=== PATIENT | female | born 1955 | race Caucasian/White ===

== ENCOUNTER 2016-09-10 23:19 | Inpatient (IN) ==
[2016-09-11] MEDS ORDERED: LASIX IV ONE (01:22)
[2016-09-11] MEDS ORDERED: NORCO-10 PO ONE (01:25)
[2016-09-11 01:37] LABS: MANUAL DIFF NEEDED? NO
[2016-09-11 02:07] LABS: ALBUMIN 3.1 g/dL (3.5-5.0); CALCIUM 8.2 mg/dL (8.8-10.2); POTASSIUM 4.4 mmol/L (3.5-5.1); TOTAL BILIRUBIN 0.3 mg/dL (0.20-1.00)
[2016-09-11 02:09] LABS: BASO% 0.1 % (0.0-0.8); EOS# 0.06 X1000 (0.0-0.7); EOS% 0.8 % (0.0-10.0); HEMATOCRIT 30.1 % (37.0-47.0); HEMOGLOBIN 8.9 g/dL (12.0-16.0); IMM GRAN# 0.02 X1000 (0.0-0.04); IMM GRAN% 0.3 % (0.0-0.5); LYMPH# 0.57 X1000 (1.2-3.4); LYMPH% 8.1 % (20.5-51.1); MCH 26.6 PG (27-31); MCHC 29.6 g/dL (33-37); MCV 90.1 FL (81-99); MONO# 0.71 X1000 (0.11-0.59); MPV 10.4 FL (7.4-10.4); NEUT% 80.7 % (42.2-75.2); PLT 182 X1000 (130-400); RBC 3.34 XMIL (4.2-5.4)
[2016-09-11 03:17] LABS: BILIRUBIN URINE NEGATIVE (NEGATIVE); BLOOD URINE 3+ (NEGATIVE); CLARITY SL. CLOUDY (CLEAR); COLOR YELLOW; GLUCOSE URINE NEGATIVE (NEGATIVE); LEUKOCYTES URINE 2+ (NEGATIVE); NITRITE URINE POSITIVE (NEGATIVE); PH URINE 6.5; PROTEIN URINE 1+(30 mg/dL) mg/dL (NEGATIVE); UROBILINOGEN URINE NORMAL
[2016-09-11 03:19] LABS: URINE WBC TNTC /HPF (<10)
[2016-09-11 03:20] LABS: URINE CULTURE PL NEEDED? YES; URINE EPITHELIAL CELLS <10 /HPF (<10); URINE SOURCE CLEAN CATCH
--- NOTE | 2016-09-11 03:31 | PROVIDER DOCUMENTATION ---
This chart was entered by Renetta Mcdonnell Scribe, acting as scribe for Alfonso Phillip MD. HPI-General Adult - General Chief Complaint: Generalized Pain Stated Complaint: HURTING ALL OVER Time Seen by Provider: 09/11/16 01:09 Source: patient Allergies/Adverse Reactions: Patient Allergies Allergy/AdvReac Type Severity Reaction Status Date / Time diazepam [From Valium] Allergy Unknown RASH Verified 09/11/16 00:02 levofloxacin [From Levaquin] Allergy RASH Verified 09/11/16 00:02 Home Medications: Home Medication List Medication Instructions Recorded Confirmed Last Taken Type Albuterol Sulfate [Ventolin Hfa] 2 puff INH Q4-6H PRN PRN 05/27/14 09/11/1612/17 06:00 History 2 Aspirin EC 81 mg PO DAILY 05/27/14 09/11/16 04/09/15 History 81 Citalopram [Celexa] 40 mg PO DAILY 05/27/14 09/11/16 04/10/15 07:00 History 40 Famotidine 20 mg PO DAILY 05/27/14 09/11/16 04/10/15 07:00 History 20 Fluticasone 50 Mcg Nasal [place] 2 spray CARMEN DAILY 05/27/14 09/11/16 Unknown History [Flonase] Fluticasone/Salmeterol [Advair 1 puff INH BID 05/27/14 09/11/16 04/11/15 06:00 History 500-50 Diskus] 1 Levothyroxine [Synthroid] 100 microgm PO DAILY 05/27/14 09/11/16 04/10/15 07:00 History 0.75 Metoprolol Tartrate 25 mg PO DAILY 05/27/14 09/11/16 04/10/15 07:00 History 25 Montelukast Sodium [Singulair] 10 mg PO DAILY 05/27/14 09/11/16 04/10/15 07:00 History 10 Tiotropium [place] Inhaler 18 mcg INH DAILY 05/27/14 09/11/16 04/10/15 07:00 History [Spiriva] 18 Hydrocodone/Acetaminophen [[place] 1 each PO Q8H PRN PRN 05/28/14 09/11/16 07:00 History 10-325 Tablet] 1 Gabapentin 300 mg PO BID 12/08/15 05/10/17 12/07/15 07:00 History 300 Lisinopril 5 mg PO DAILY 04/11/15 09/11/16 04/10/15 07:00 History 2.5 Methocarbamol 750 mg PO Q8H PRN PRN 04/11/15 09/11/16 04/08/15 History 750 Spironolactone 25 mg PO DAILY 04/11/15 09/11/16 04/10/15 07:00 History 25 Albuterol [Albuterol Neb] 2.5 mg IN TID 03/26/16 09/11/16 Unknown History Amiodarone [Cordarone] 400 mg PO DAILY #60 tablet 04/06/16 09/11/16 Unknown Rx Rivaroxaban [Xarelto] 20 mg PO DAILY 07/29/16 09/11/16 Unknown History Alendronate Sodium [Fosamax] 70 mg PO DAILY 07/31/16 09/11/16 07/24/16 History Furosemide [Lasix] 20 mg PO DAILY #20 tablet 07/31/16 09/11/16 Unknown Rx Lactulose 30 ml PO DAILY #30 udc 08/01/16 09/11/16 Unknown Rx Polyethylene Glycol 3350 [Miralax] 17 gm PO DAILY #30 powd.pack 08/01/16 Unknown Rx - History of Present Illness -Gen Adult Nature of Presenting Problems: 61 year old F presents to the ED with a cc of chest pain, ABD pain, and lower back pain with an onset of 2 days ago. PT states tonight that she began developing sores in her mouth and was running a fever of 101. Pt states that she saw her PCP last week for her annual check up and was told to follow up with her [place] aide. Location of Pain/Injury: reports: chest, abdomen, back Pain Radiation: reports: no radiation Quality of Pain: reports: aching Severity: reports: mild Onset/Duration: reports: 2 days ago Timing: reports: still present Associated Symptoms: reports: back/neck pain, chest pain Similar Symptoms Previously?: No Recently seen or treated by another doctor?: Yes Review of Systems - Adult - REVIEW OF SYSTEMS - ADULT Constitutional: reports: fever. denies: chills Eyes: reports: no symptoms reported Ears, Nose, Mouth & Throat: reports: no symptoms reported Cardiovascular: reports: chest pain. denies: palpitations Respiratory: reports: cough. denies: shortness of breath Gastrointestinal: reports: abdominal pain. denies: nausea, vomiting Genitourinary: denies: dysuria, hematuria Musculoskeletal: reports: back pain. denies: neck pain Integumentary: denies: skin sores/ulcer, skin thickening Neurological: reports: no symptoms reported Psychiatric: reports: no symptoms reported Endocrine: reports: no symptoms reported Hematologic/Lymphatic: reports: no symptoms reported Allergic/Immunologic: reports: no symptoms reported All Other Systems: Reviewed and Negative Past History - Adult - PAST MEDICAL HISTORY-ADULT Review of Records: reports: Nursing Assessment Review, Medications Reviewed Major Childhood Illnesses: reports: denies history Cardiovascular: reports: blood clots, CAD, CHF, hyperlipidemia, [place] Respiratory: reports: asthma, COPD Gastrointestinal: reports: GERD Musculoskeletal: reports: chronic pain Endocrine/Immune: reports: Diabetes, thyroid disorder, other (hx of DVT) - PRIOR SURGERIES/PROCEDURES Surgical/Procedure History: reports: CABG, cardiac stent, orthopedic (extremity ) (left arm/wrist) - PRIOR HOSPITALIZATIONS Prior Hospitalizations: reports: for other non-related - IMMUNIZATION STATUS Childhood Immunizations: See Nurse Assessment Flu Vaccine: See Nurse Assessment - FAMILY HISTORY Family History: reviewed, not pertinent - SOCIAL HISTORY Smoking: non-smoker Substance Use: none/never Alcohol Use Frequency: never Physical Exam-General - PHYSICAL EXAM-ADULT Initial Vital Signs Reviewed: Yes - CONSTITUTIONAL General Appearance: appears well, alert, no apparent distress, obese - RESPIRATORY Respiratory: decreased breath sounds, crackles (diffuse), rales (bilateral bases ) - CARDIOVASCULAR Cardiovascular: bradycardia, other (distant and weak heart sounds) - GASTROINTESTINAL (ABDOMEN) Abdominal Exam: tenderness (RUQ, LUQ) - MUSCULOSKELETAL Extremity: normal inspection, pedal edema (2+ bilaterally) - SKIN Integumentary: normal color, normal turgor, warm/dry - PSYCHIATRIC Psych/Mental Status: normal mood/affect, normal thought content, normal thought process, oriented x 3 Progress - PLAN OF CARE/RESULTS Progress/Plan/Lab Results: Vital Signs - 8 hr 09/10/16 23:58 Temperature 99.0 F Pulse Rate 69 Respiratory Rate 20 Blood Pressure 103/59 O2 Sat by Pulse Oximetry 93 L Laboratory Results - last 24 hr 09/11/16 00:05 Influenza A (Rapid) NEGATIVE Influenza B (Rapid) NEGATIVE Orders Category Date Time Status Flu [INFLUENZA SCREEN PL] Stat Lab 09/11/16 00:05 Completed Result Diagrams: 09/11/16 01:30 09/11/16 01:30 - EKG 1 Time of EKG reading by physician:: 01:40 EKG Read and Signed by:: Alfonso Phillip EKG Interpretation (*Must complete 3 of following elements*): Normal Rate: 60 Rhythm: NSR [place]: right - XRAY 1 XRAY Study: Chest Impression: Abnormal XRAY Interpretation: cardiomegally, pulmonary vascular congestion: Dr. Phillip( ER MD) Departure - Departure Time of Disposition Decision: 03:31 DIAGNOSIS: Pyelonephritis, acute CHF (congestive heart failure), NYHA class II Qualifiers: Congestive heart failure type: combined Congestive heart failure chronicity: acute on chronic Qualified Code(s): I50.43 - Acute on chronic combined systolic (congestive) and diastolic (congestive) heart failure Disposition: ADMITTED INPATIENT 09 Certified Medical Emergency: Emergent Condition: Fair Referrals and Follow-Ups: Lex Alicea MD [Primary Care Provider] - - Critical Care Note This patient required my direct & personal management of CC.: No This chart was documented by the indicated scribe, (Renetta Mcdonnell Scribe) and accurately reflects the services I performed and decisions made by me, Alfonso Phillip MD, as attested by the provider's signature.
[2016-09-11] MEDS ORDERED: ZOFRAN IV PRN (03:36)
[2016-09-11] MEDS ORDERED: TYLENOL PO PRN (03:36)
[2016-09-11] MEDS ORDERED: ROCEPHIN 1 GM/NS 1 GM/50 ML IVPB IV ONE (03:40)
[2016-09-11] MEDS: ROCEPHIN 1 GM/NS 1 GM/50 ML IVPB IV SCH (04:07)
--- NOTE | 2016-09-11 06:47 | Diag Imaging Result Document ---
PROCEDURE NAME: CHEST-2 VIEWS - 09/11/2016 FRONTAL AND LATERAL CHEST, TWO VIEWS: COMPARISON: Compared to 07/29/2016. FINDINGS: There are sternal wires and surgical clips. The heart is enlarged. The vessels are not distended. Increase AP diameter to the chest. No pleural effusions. No consolidation. IMPRESSION: 1. Cardiomegaly. 2. I believe the patient has emphysema.
[2016-09-11] MEDS: LASIX IV SCH ×2 (09:33→20:21)
[2016-09-11] MEDS: NORCO-10 PO PRN ×2 (11:01→20:28)
--- NOTE | 2016-09-11 11:43 | EKG Report ---
Test Performed on : 09/11/2016 10:57:57 AM Test Reason : Chst pain Blood Pressure : / mmHG Vent. Rate : 056 BPM Atrial Rate : 056 BPM P-R Int : 178 ms QRS Dur : 098 ms QT Int : 492 ms P-R-T Axes : 074 104 076 degrees QTc Int : 474 ms Sinus bradycardia. Possible Right ventricular hypertrophy T wave abnormality, consider anterior ischemia Prolonged QT Abnormal ECG When compared with ECG of 11-SEP-2016 01:40, No significant change was found Confirmed by Varun Rubio MD ([id number]) on 10/02/2016 10:14:42 PM
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
[2016-09-11] MEDS: ALBUTEROL NEB INH SCH ×3 (15:56→20:33)
[2016-09-11] MEDS: ADVAIR 500/50 DISKUS INH SCH (15:57)
[2016-09-11] MEDS: SPIRIVA INH SCH (15:57)
[2016-09-11] MEDS: FLONASE NAS SCH (16:29)
[2016-09-11] MEDS: LOPRESSOR PO SCH (16:30)
[2016-09-11] MEDS: LACTULOSE PO SCH (16:30)
[2016-09-11] MEDS: MIRALAX PO SCH (16:30)
[2016-09-11] MEDS: PEPCID PO SCH (16:31)
[2016-09-11] MEDS: SINGULAIR PO SCH (16:31)
[2016-09-11] MEDS: NEURONTIN PO SCH ×2 (16:31→20:21)
[2016-09-11] MEDS: SYNTHROID PO SCH (16:32)
[2016-09-11] MEDS: XARELTO PO SCH (17:22)
[2016-09-12] MEDS: ROCEPHIN 1 GM/NS 1 GM/50 ML IVPB IV SCH (03:33)
[2016-09-12] MEDS: SYNTHROID PO SCH ×2 (05:57→06:13)
[2016-09-12 06:53] LABS: BASO% 0.3 % (0.0-0.8); EOS% 1.4 % (0.0-10.0); HEMATOCRIT 29.4 % (37.0-47.0); HEMOGLOBIN 8.3 g/dL (12.0-16.0); IMM GRAN# 0.03 X1000 (0.0-0.04); IMM GRAN% 0.4 % (0.0-0.5); LYMPH# 0.57 X1000 (1.2-3.4); MCH 25.9 PG (27-31); MCHC 28.2 g/dL (33-37); MCV 91.6 FL (81-99); MONO# 0.78 X1000 (0.11-0.59); MONO% 10.9 % (1.7-9.3); MPV 11.1 FL (7.4-10.4); PLT 181 X1000 (130-400); RBC 3.21 XMIL (4.2-5.4)
[2016-09-12 07:12] LABS: CALCIUM 8.5 mg/dL (8.8-10.2); POTASSIUM 4.5 mmol/L (3.5-5.1)
[2016-09-12 07:33] LABS: MANUAL DIFF NEEDED? NO
[2016-09-12] MEDS: FLONASE NAS SCH (08:52)
[2016-09-12] MEDS: NEURONTIN PO SCH ×2 (08:52→20:39)
[2016-09-12] MEDS: LOPRESSOR PO SCH (08:52)
[2016-09-12] MEDS: CORDARONE PO SCH (08:52)
[2016-09-12] MEDS: CELEXA PO SCH (08:52)
[2016-09-12] MEDS: MIRALAX PO SCH (08:52)
[2016-09-12] MEDS: ALDACTONE PO SCH (08:53)
[2016-09-12] MEDS: LACTULOSE PO SCH (08:53)
[2016-09-12] MEDS: PEPCID PO SCH (08:53)
[2016-09-12] MEDS: SINGULAIR PO SCH (08:53)
[2016-09-12] MEDS: LASIX IV SCH (08:53)
[2016-09-12] MEDS: ASPIRIN EC PO SCH (08:53)
[2016-09-12] MEDS: SPIRIVA INH SCH (09:00)
[2016-09-12] MEDS: ALBUTEROL NEB INH SCH ×3 (09:00→20:53)
[2016-09-12] MEDS: ADVAIR 500/50 DISKUS INH SCH ×3 (09:00→20:53)
--- NOTE | 2016-09-12 09:23 | ECHO REPORT ---
ORDER DATE: 09/11/2016 INDICATION: Chest pain and COPD. M-MODE MEASUREMENTS: Right ventricle: 4.6 cm. Left ventricle end diastole: 4.4 cm. Left ventricle end systole: 3.3 cm. Posterior wall: 1.2 cm. Interventricular septum: 1.2 cm. Left atrium: 4.0 cm. Aortic root: 3.5 cm. SUMMARY OF 2-DIMENSIONAL IMAGIN. The left ventricle shows atypical or paradoxical contractility of the interventricular septum. The chamber is not dilated. The global ejection fraction is normal at 59%. 2. The right ventricle is markedly enlarged and it shows mild global hypokinesis. 3. The tricuspid valve shows [id number] severe degree of regurgitation. 4. The inferior vena cava is at the upper limits of normal. 5. The pulmonary systolic pressure is estimated to be at 54 mmHg. 6. The pulmonic valve shows a moderate degree regurgitation. 7. The pulmonary diastolic pressure is estimated at 18 mmHg. 8. The mitral valve looks normal. Color flow mapping indicates a mild degree of regurgitation. 9. Pulse wave Doppler of mitral inflow is normal. 10.Tissue Doppler of septal and lateral mitral annulus averages 8 cm. 11.Pulmonary venous flow is normal. 12.There is no diastolic dysfunction. 13.The aortic valve has three cusps and they open normally. Color flow mapping is unremarkable. There is no stenosis and no regurgitation. 14.There is no pericardial effusion and no sign of thrombus. SUMMARY: In summary, this study shows: 1. Normal left ventricular size with normal function and ejection fraction of 59% with paradoxical contractility of the interventricular septum. This probably relates to the large right ventricle. 2. Significantly enlarged right ventricle with mild global hypokinesis. 3. Pulmonary systolic pressure is estimated at 54 mmHg and diastolic pressure is estimated at 18 mmHg. 4. Mild degree of mitral regurgitation. 5. No pericardial effusion and no sign of thrombus. 6. No diastolic dysfunction. cc: MD Humphrey Vu MD
--- NOTE | 2016-09-12 10:54 | Diag Imaging Result Document ---
PROCEDURE NAME: CHEST-PORTABLE - 09/12/2016 PORTABLE CHEST X-RAY: COMPARISON: 09/11/2016. FINDINGS: Stable CABG changes. Stable cardiomegaly and pulmonary vascular congestion. No obvious edema. No significant infiltrates. IMPRESSION: Cardiomegaly and pulmonary vascular congestion.
--- NOTE | 2016-09-12 13:34 | PROGRESS NOTE ---
DATE: 09/12/2016 SUBJECTIVE: This patient states that she is feeling much better. Yesterday she was complaining of some kind of chest discomfort. I ordered an EKG that did not show any changes compared with previous ones and troponin has been negative so far. I ordered a chest x-ray today and that showed some vascular congestion. In light of increased creatinine I will decrease the dose of furosemide from 40 IV twice a day to 40 IV daily and hopefully tomorrow it can be changed to p.o. This patient is on furosemide at home, 20 mg p.o. daily. OBJECTIVE: Vital Signs: Temperature 97.7 degrees, pulse 86, respiratory rate 20, blood pressure 112/68, oxygen saturation 94% on 2 L of nasal cannula. HEENT: Head normocephalic. No trauma. PERRLA. Neck: Supple. No JVD. No masses. Central trachea. Chest: Bilateral rales at the bases and decreased breath sounds at the bases as well. Cardiovascular: RRR. No murmurs. Abdomen: Soft, nontender, nondistended. No hepatosplenomegaly. Extremities: There is 2+ lower extremity edema. No clubbing. No cyanosis. Neurological: The patient is alert and oriented x3. No focal neurological deficits. LABORATORY: WBC 7.1, hemoglobin 8.3, hematocrit 29.4, platelet 181,000. Sodium 135, potassium 4.5, chloride 94, bicarbonate 29, BUN 35, creatinine 1.7, glucose 115, calcium 8.5. ASSESSMENT AND PLAN: 1. Urinary tract infection. We will continue this patient on antibiotics. This patient is on ceftriaxone. Urine culture showed gram-negative rods, pending sensitivity. 2. Acute kidney injury. I will decrease the dose of furosemide from 40 IV twice a day to 40 daily. She still has some pulmonary congestion and lower extremity edema. She has been on Lasix and spironolactone before. We will monitor. 3. Questionable congestive heart failure. We had an echocardiogram that showed no diastolic dysfunction. I do believe that she has mild pulmonary hypertension and ejection fraction of 59%, but this patient has been having paradoxical contractility of the interventricular septum and this is probably related to the large right ventricle. 4. Type 2 diabetes, controlled. Continue with the same management. 5. Chronic obstructive pulmonary disease. Not in exacerbation at this moment. Continue with the same treatment. cc: Humphrey Gooden MD
[2016-09-12] MEDS: NORCO-10 PO PRN ×2 (13:59→22:31)
[2016-09-12] MEDS: XARELTO PO SCH (16:52)
[2016-09-13] MEDS: ROCEPHIN 1 GM/NS 1 GM/50 ML IVPB IV SCH (04:45)
[2016-09-13] MEDS: NORCO-10 PO PRN ×2 (06:30→21:48)
[2016-09-13] MEDS: SYNTHROID PO SCH (06:30)
[2016-09-13] MEDS: ROBAXIN PO PRN (06:35)
[2016-09-13 07:09] LABS: BASO% 0.4 % (0.0-0.8); EOS# 0.14 X1000 (0.0-0.7); EOS% 1.9 % (0.0-10.0); HEMATOCRIT 30.3 % (37.0-47.0); HEMOGLOBIN 8.6 g/dL (12.0-16.0); IMM GRAN# 0.06 X1000 (0.0-0.04); IMM GRAN% 0.8 % (0.0-0.5); LYMPH# 0.65 X1000 (1.2-3.4); LYMPH% 8.7 % (20.5-51.1); MANUAL DIFF NEEDED? YES; MCH 25.9 PG (27-31); MCHC 28.4 g/dL (33-37); MCV 91.3 FL (81-99); MONO% 6.7 % (1.7-9.3); NEUT% 81.5 % (42.2-75.2); PLT 205 X1000 (130-400); RBC 3.32 XMIL (4.2-5.4)
[2016-09-13 07:39] LABS: CALCIUM 8.4 mg/dL (8.8-10.2); POTASSIUM 4.3 mmol/L (3.5-5.1)
[2016-09-13] MEDS: SPIRIVA INH SCH (07:40)
[2016-09-13] MEDS: ADVAIR 500/50 DISKUS INH SCH ×3 (08:00→20:21)
[2016-09-13 08:53] LABS: EOS 2 % (1-10); HYPOCHROM 1+; LYMPHS 12 % (21-51); MONO 4 % (1-9)
[2016-09-13] MEDS: ALBUTEROL NEB INH SCH ×3 (09:00→20:20)
[2016-09-13] MEDS ORDERED: LASIX IV SCH (09:00)
[2016-09-13] MEDS: NEURONTIN PO SCH ×2 (10:01→20:43)
[2016-09-13] MEDS: CELEXA PO SCH (10:02)
[2016-09-13] MEDS: ASPIRIN EC PO SCH (10:02)
[2016-09-13] MEDS: SINGULAIR PO SCH (10:02)
[2016-09-13] MEDS: ALDACTONE PO SCH (10:02)
[2016-09-13] MEDS: PEPCID PO SCH (10:02)
[2016-09-13] MEDS: LOPRESSOR PO SCH (10:03)
[2016-09-13] MEDS: LACTULOSE PO SCH (10:03)
[2016-09-13] MEDS: MIRALAX PO SCH (10:03)
[2016-09-13] MEDS: CORDARONE PO SCH (10:28)
[2016-09-13] MEDS: FLONASE NAS SCH (10:49)
--- NOTE | 2016-09-13 13:36 | PROGRESS NOTE ---
DATE: 09/13/2016 SUBJECTIVE: Today Ms. Hollis refers to be doing a lot better. She was sitting up on the side of the bed. She did refer that she has some perioral numbness. OBJECTIVE: Vital Signs: Blood pressure is 115/49, pulse of 64, respirations 20, temperature 98.5 degrees. General: Ms. Hollis is a 61-year-old female. She is in bed, sitting up, in no distress. HEENT: Mucosa is pink and moist. Anicteric. Acyanotic. Neck: Supple. Chest: Air entry is bilaterally reduced. Cardiovascular: Regular rate and rhythm. There is a 2/6 PS murmur and also a TR murmur. No gallops. Abdomen: Soft, distended, but nontender. Extremities: About 2+ pedal edema. Central Nervous System: The patient is alert and oriented x4. No focal neurological deficit. LABORATORY DATA: WBC is 7.49, hemoglobin is 8.6, platelet count of 200,000. Chemistries: Sodium is 134, potassium 4.3, chloride is 94, bicarbonate is 30. ASSESSMENT AND PLAN: 1. Escherichia coli urinary tract infection, sensitive to ceftriaxone. We will continue on that. 2. Acute kidney injury. The patient does have recurrent acute kidney injuries. For now, we will make sure to avoid any nephrotoxic drugs. We will discontinue the furosemide since this seems to be getting it worse. 3. Mild pulmonary hypertension with large right ventricle and with hypokinesis. I think this is all indicative of right ventricular failure, which I suspect is due to underlying lung disease. I suspect the patient has sleep apnea versus obesity hypoventilation syndrome, which she will need to address this with pulmonary medicine on an outpatient basis. 4. Diabetes type 2, controlled. 5. Chronic obstructive pulmonary disease, not in exacerbation. 6. Metabolic alkalosis. I think this is probably reactive to chronic respiratory acidosis from obesity hypoventilation syndrome. We will do an arterial blood gas to check on her acid-base. cc: Jos Martini MD
[2016-09-13] MEDS: XARELTO PO SCH (17:17)
[2016-09-14] MEDS: ROCEPHIN 1 GM/NS 1 GM/50 ML IVPB IV SCH (03:02)
[2016-09-14 04:54] LABS: BE 9.8 mmoll (-3.0-3.0); BLOOD TYPE ARTERIAL; DRAW SITE R RADIAL; METHB 0.5 % (0.0-1.5); O2(CT) 12.4 mL/dL (15.0-23.0); PO2(98.6) 116 mmHg (60-100); SAMPLE BLOOD; SAO2 100.4 % (95.0-100.0); THB 8.9 g/dL (11.5-17.4); pH(98.6) 7.33 (7.35-7.45)
[2016-09-14] MEDS: SPIRIVA INH SCH (07:14)
[2016-09-14 08:30] LABS: AGAP 10; BUN 41 mg/dL (8-22); CHLORIDE 94 mmol/L (98-107); COSMO 277; MAGNESIUM 2.1 mg/dL (1.5-2.7); POTASSIUM 4.4 mmol/L (3.5-5.1); SODIUM 133 mmol/L (136-145); TCO2 29 mmol/L (25-35)
[2016-09-14] MEDS: FLONASE NAS SCH (08:41)
[2016-09-14] MEDS: NEURONTIN PO SCH ×2 (08:42→22:00)
[2016-09-14] MEDS: CORDARONE PO SCH (08:42)
[2016-09-14] MEDS: PEPCID PO SCH (08:42)
[2016-09-14] MEDS: ASPIRIN EC PO SCH (08:42)
[2016-09-14] MEDS: MIRALAX PO SCH (08:42)
[2016-09-14] MEDS: SINGULAIR PO SCH (08:42)
[2016-09-14] MEDS: LOPRESSOR PO SCH (08:42)
[2016-09-14] MEDS: CELEXA PO SCH (08:42)
[2016-09-14 08:46] LABS: BASO% 0.4 % (0.0-0.8); EOS# 0.08 X1000 (0.0-0.7); EOS% 1.1 % (0.0-10.0); HEMATOCRIT 30.2 % (37.0-47.0); HEMOGLOBIN 8.6 g/dL (12.0-16.0); IMM GRAN# 0.07 X1000 (0.0-0.04); IMM GRAN% 0.9 % (0.0-0.5); LYMPH# 0.64 X1000 (1.2-3.4); LYMPH% 8.4 % (20.5-51.1); MANUAL DIFF NEEDED? YES; MCH 25.9 PG (27-31); MCHC 28.5 g/dL (33-37); MONO# 0.41 X1000 (0.11-0.59); MONO% 5.4 % (1.7-9.3); NEUT% 83.8 % (42.2-75.2); PLT 253 X1000 (130-400); RBC 3.32 XMIL (4.2-5.4)
[2016-09-14] MEDS: ALDACTONE PO SCH (08:49)
[2016-09-14] MEDS: LACTULOSE PO SCH (08:50)
[2016-09-14] MEDS: ADVAIR 500/50 DISKUS INH SCH ×2 (09:13→20:29)
[2016-09-14] MEDS: ALBUTEROL NEB INH SCH ×2 (09:14→20:29)
[2016-09-14 09:38] LABS: ALLEN TEST YES; MODALITY CANNULA
[2016-09-14] MEDS: NORCO-10 PO PRN ×2 (10:08→18:58)
[2016-09-14] MEDS: ROBAXIN PO PRN ×2 (10:09→18:58)
[2016-09-14 10:21] LABS: LYMPHS 18 % (21-51); MONO 6 % (1-9)
[2016-09-14 10:55] LABS: PCO2(98.6) 71 mmHg (35-45)
--- NOTE | 2016-09-14 12:38 | PROGRESS NOTE ---
DATE: 09/14/2016 SUBJECTIVE: Today Ms. Hollis refers to be doing relatively fine. She denies any acute complaints. OBJECTIVE: Vital Signs: Blood pressure is 137/57, pulse of 65, temperature is 98.5 degrees. General: Ms. Hollis is a 61-year-old female. She is sitting up in the bed, not seemingly distressed. HEENT: Mucosa is pink and moist. Anicteric. Acyanotic. Neck: Supple. Chest: Good air entry bilaterally. Cardiovascular: Regular rate and rhythm. There is a 2/6 TR murmur. There is also a scar. Abdomen: Soft, distended, but nontender. Extremities: About 2+ pedal edema, which is hard. LABORATORY DATA: WBC is 7.6, hemoglobin is 8.6, platelet count of 253,000. There are no bands on peripheral smear. Chemistries reviewed, sodium is 133, potassium is 4.4, chloride is 98, bicarbonate is 29, BUN is 41, creatinine is 1.7. ASSESSMENT: 1. Escherichia coli urinary tract infection. We will continue with the current ceftriaxone. Today is day 3 on antibiotics, and we plan to treat her for a total of 5 days. 2. Acute kidney injury, stable. We will continue to avoid any nephrotoxins. The patient does have recurrent acute kidney injuries, so I think she does have a baseline chronic kidney disease. 3. Mild pulmonary hypertension with large right ventricle and hypokinesis. 4. Metabolic alkalosis. 5. Acute on chronic respiratory acidosis, suspicion for possible hypoventilation syndrome. 6. Diabetes type 2. 7. Chronic lower extremity edema, likely from venous insufficiency. In general, I think Ms. Hollis is stable. An ABG this morning did show a CO2 of 71, which is high. We will put her on the BiPAP for about 4 hours, repeat her ABGs to make sure it is back to normal before we discharge her later today or first thing in the morning. cc: MD LIDIA Chu
[2016-09-14] MEDS: SYNTHROID PO SCH (12:54)
[2016-09-14] MEDS: XARELTO PO SCH (16:52)
[2016-09-14 17:12] LABS: BE 3.3 mmoll (-3.0-3.0); BLOOD TYPE ARTERIAL; DRAW SITE L RADIAL; METHB 0.8 % (0.0-1.5); O2(CT) 16.6 mL/dL (15.0-23.0); PO2(98.6) 59 mmHg (60-100); SAMPLE BLOOD; SAO2 93.1 % (95.0-100.0); pH(98.6) 7.31 (7.35-7.45)
[2016-09-14 17:18] LABS: ALLEN TEST YES; MODALITY BI PAP
[2016-09-15] MEDS: ROCEPHIN 1 GM/NS 1 GM/50 ML IVPB IV SCH (03:51)
[2016-09-15 05:48] LABS: BE 7.3 mmoll (-3.0-3.0); BLOOD TYPE ARTERIAL; DRAW SITE L BRACHIAL; METHB 1.1 % (0.0-1.5); O2(CT) 11.6 mL/dL (15.0-23.0); PO2(98.6) 91 mmHg (60-100); SAMPLE BLOOD; SAO2 98.8 % (95.0-100.0); THB 8.5 g/dL (11.5-17.4); pH(98.6) 7.36 (7.35-7.45)
[2016-09-15 05:50] LABS: PCO2(98.6) 60 mmHg (35-45)
[2016-09-15 05:51] LABS: ALLEN TEST NO; MODALITY CANNULA
[2016-09-15] MEDS ORDERED: FOSAMAX PO SCH (06:00)
[2016-09-15] MEDS: ROBAXIN PO PRN (06:15)
[2016-09-15] MEDS: NORCO-10 PO PRN (06:16)
[2016-09-15] MEDS: SYNTHROID PO SCH (06:16)
[2016-09-15 07:27] LABS: CALCIUM 8.4 mg/dL (8.8-10.2); POTASSIUM 5.3 mmol/L (3.5-5.1)
[2016-09-15 08:11] VITALS: BP 108/47
[2016-09-15] MEDS ORDERED: KAYEXALATE PO ONE (08:26)
[2016-09-15] MEDS: ALBUTEROL NEB INH SCH (08:50)
[2016-09-15] MEDS: ADVAIR 500/50 DISKUS INH SCH (08:52)
[2016-09-15] MEDS: SPIRIVA INH SCH (08:52)
[2016-09-15] MEDS: PEPCID PO SCH (09:31)
[2016-09-15] MEDS: MIRALAX PO SCH (09:31)
[2016-09-15] MEDS: LOPRESSOR PO SCH (09:31)
[2016-09-15] MEDS: FLONASE NAS SCH (09:31)
[2016-09-15] MEDS: LACTULOSE PO SCH (09:31)
[2016-09-15] MEDS: ASPIRIN EC PO SCH (09:31)
[2016-09-15] MEDS: SINGULAIR PO SCH (09:31)
[2016-09-15] MEDS: NEURONTIN PO SCH (09:31)
[2016-09-15] MEDS: ALDACTONE PO SCH (09:32)
[2016-09-15] MEDS: CORDARONE PO SCH (09:32)
[2016-09-15] MEDS: CELEXA PO SCH (09:32)
[2016-09-15] MEDS ORDERED: DUONEB (A & A) ONE (10:48)
[2016-09-15] MEDS ORDERED: OMNICEF PO SCH (21:00)
--- NOTE | 2016-09-16 04:46 | DISCHARGE SUMMARY ---
ADMISSION DATE: 09/11/2016 DISCHARGE DATE: 09/15/2016 DISPOSITION: Home. FOLLOWUP: 1. Dr. Alicea. 2. Dr. rGimes. CONSULTATIONS DURING THIS ADMISSION: None. IMAGING STUDIES OF SIGNIFICANCE: And echocardiogram was done, which showed an ejection fraction of about 59. There was some paradoxical contractility of the interventricular septum. A chest x- ray was done, shows cardiomegaly and pulmonary vascular congestion. ADMISSION DIAGNOSES: 1. Pyelonephritis. 2. Acute kidney injury. 3. Congestive failure. DISCHARGE DIAGNOSES: 1. E. coli urinary tract infection. 2. Acute kidney injury, improved. 3. Mild pulmonary hypertension, with large right ventricle and hypokinesis. 4. Fzygx-zs-jldduhc respiratory acidosis, suspicious for possible hypoventilation syndrome. 5. Diabetes mellitus. 6. Chronic lower extremity edema, likely due to venous insufficiency. DISCHARGE MEDICATIONS: 1. Albuterol inhaler. 2. Aspirin 81 mg. 3. Advair. 4. Famotidine 20 mg daily. 5. Metoprolol 25 mg daily. 6. Spiriva inhaler. 7. Spironolactone 25 mg daily. 8. Lisinopril 5 mg daily. 9. Methocarbamol 750 q.8 p.r.n. 10. Amiodarone 400 mg daily. 11. Rivaroxaban 20 mg daily. 12. Lasix 20 mg daily. 13. Alendronate 70 mg daily. 14. Lactulose. 15. Cefdinir 300 b.i.d. PRESENTING COMPLAINT: Lower back pain, chest, and subjective fever. HISTORY OF PRESENTING COMPLAINT: Ms. Hollis is a 61-year-old female, who presented to the emergency department because of subjective fever of 101 for the past 2 days prior to coming. Upon presentation, patient was evaluated, was found to have costophrenic angle tenderness. Patient was subsequently admitted for medical care. HOSPITAL COURSE: The patient responded well to the IV antibiotics. The fever subsided. Urine culture finally came out to be E. coli, sensitive to the medication that she was on. This was transitioned to p.o. Her kidney functions also improved gradually with gentle hydration. At the time of discharge, the patient's potassium was about 5.3. Was given a dose of Kayexalate, and has been advised to repeat her BNP in 1 week, and review the result with her primary care doctor. The patient is going to be discharged home in a very stable condition. Her vitals currently: Blood pressure is 108/47, pulse of 69, respirations 18, temperature is 97.8 degrees. TIME SPENT: Time spent for discharge was 37 minutes. cc: Jos Martini MD
[2016-09-18 12:42] LABS: PCO2(98.6) 62 mmHg (35-45)
== END 2016-09-15 14:15 | disposition home health service (06) ==
LOC: P.ED 23:19 → SUATTDRO 09-11 04:03 → P.MEDSURG 09-11 04:03
PROVIDERS: ATTEND Internal Medicine

== ENCOUNTER 2016-11-07 07:25 | Inpatient (IN) ==
[2016-11-07] MEDS ORDERED: ASPIRIN PO STA (07:34)
[2016-11-07 07:52] LABS: MANUAL DIFF NEEDED? NO
[2016-11-07 07:58] LABS: BASO% 0.5 % (0.0-0.8); EOS# 0.13 X1000 (0.0-0.7); EOS% 2.1 % (0.0-10.0); HEMATOCRIT 35.2 % (37.0-47.0); HEMOGLOBIN 10.5 g/dL (12.0-16.0); IMM GRAN# 0.02 X1000 (0.0-0.04); IMM GRAN% 0.3 % (0.0-0.5); LYMPH# 1.45 X1000 (1.2-3.4); MCH 26.1 PG (27-31); MCHC 29.8 g/dL (33-37); MCV 87.6 FL (81-99); MONO# 0.47 X1000 (0.11-0.59); MONO% 7.4 % (1.7-9.3); MPV 10.1 FL (7.4-10.4); NEUT% 66.7 % (42.2-75.2); PLT 284 X1000 (130-400); RBC 4.02 XMIL (4.2-5.4)
--- NOTE | 2016-11-07 08:08 | Diag Imaging Result Doc PS360 ---
EXAM: CHEST-PORTABLE HISTORY: sob TECHNIQUE: Erect AP portable at 0744 COMMENT: There is cardiomegaly. There is mild interstitial pulmonary edema. There is some obscuration of the left heart border and hemidiaphragm which may be indicative of atelectasis or pneumonia. IMPRESSION: Pulmonary edema and questionable lingular and left lower lobe atelectasis. Electronically signed by Anthony Amaya 11/07/2016 8:05 AM
[2016-11-07 08:11] LABS: ALBUMIN 4.2 g/dL (3.5-5.0); MAGNESIUM 1.9 mg/dL (1.5-2.7); POTASSIUM 4.5 mmol/L (3.5-5.1); TOTAL BILIRUBIN 0.3 mg/dL (0.20-1.00); TOTAL PROTEIN 7.9 g/dL (6.3-8.3)
[2016-11-07 08:31] LABS: INR 1.8 (0.86-1.15); PROTIME 21.1 Seconds (12.1-15.5)
--- NOTE | 2016-11-07 08:42 | EKG Report ---
Test Performed on : 11/07/2016 07:50:32 AM Test Reason : CHEST PAIN Blood Pressure : / mmHG Vent. Rate : 064 BPM Atrial Rate : 064 BPM P-R Int : 190 ms QRS Dur : 096 ms QT Int : 478 ms P-R-T Axes : 054 100 042 degrees QTc Int : 493 ms Normal sinus rhythm. Inferior-posterior infarct , age undetermined Abnormal ECG When compared with ECG of 07-NOV-2016 07:49, (Unconfirmed) No significant change was found Unconfirmed Result
[2016-11-07] MEDS ORDERED: LASIX IV ONE (10:15)
--- NOTE | 2016-11-07 10:47 | PROVIDER DOCUMENTATION ---
This chart was entered by Laura Tariq Scribe, acting as scribe for Alex Figueroa MD. HPI-Respiratory General - General Chief Complaint: Shortness of Breath Stated Complaint: SOB Time Seen by Provider: 11/07/16 07:34 Source: patient Allergies/Adverse Reactions: Patient Allergies Allergy/AdvReac Type Severity Reaction Status Date / Time diazepam [From Valium] Allergy Unknown RASH Verified 09/11/16 00:02 levofloxacin [From Levaquin] Allergy RASH Verified 09/11/16 00:02 Home Medications: Home Medication List Medication Instructions Recorded Confirmed Last Taken Type Albuterol Sulfate [Ventolin Hfa] 2 puff INH Q4-6H PRN PRN 05/27/14 09/11/1612/17 06:00 History 2 Aspirin EC 81 mg PO DAILY 05/27/14 09/11/16 04/09/15 History 81 Citalopram [Celexa] 40 mg PO DAILY 05/27/14 09/11/16 04/10/15 07:00 History 40 Famotidine 20 mg PO DAILY 05/27/14 09/11/16 04/10/15 07:00 History 20 Fluticasone/Salmeterol [Advair 1 puff INH BID 05/27/14 09/11/16 04/11/15 06:00 History 500-50 Diskus] 1 Metoprolol Tartrate 25 mg PO DAILY 05/27/14 09/11/16 04/10/15 07:00 History 25 Montelukast Sodium [Singulair] 10 mg PO DAILY 05/27/14 09/11/16 04/10/15 07:00 History 10 Tiotropium [place] Inhaler 18 mcg INH DAILY 05/27/14 09/11/16 04/10/15 07:00 History [Spiriva] 18 Hydrocodone/Acetaminophen [[place] 1 each PO Q8H PRN PRN 05/28/14 09/11/16 07:00 History 10-325 Tablet] 1 Gabapentin 300 mg PO BID 04/11/15 09/11/16 04/10/15 07:00 History 300 Lisinopril 5 mg PO DAILY 04/11/15 09/11/16 04/10/15 07:00 History 2.5 Methocarbamol 750 mg PO Q8H PRN PRN 04/11/15 09/11/16 04/08/15 History 750 Spironolactone 25 mg PO DAILY 04/11/15 09/11/16 04/10/15 07:00 History 25 Albuterol [Albuterol Neb] 2.5 mg IN TID 03/26/16 09/11/16 Unknown History Amiodarone [Cordarone] 400 mg PO DAILY #60 tablet 04/06/16 09/11/16 Unknown Rx Rivaroxaban [Xarelto] 20 mg PO DAILY 07/29/16 09/11/16 Unknown History Alendronate Sodium [Fosamax] 70 mg PO DAILY 07/31/16 09/11/16 07/24/16 History Furosemide [Lasix] 20 mg PO DAILY #20 tablet 07/31/16 09/11/16 Unknown Rx Lactulose 30 ml PO DAILY #30 udc 08/01/16 09/11/16 Unknown Rx Polyethylene Glycol 3350 [Miralax] 17 gm PO DAILY #30 powd.pack 08/01/16 Unknown Rx CefDINIR [Omnicef] 300 mg PO BID #6 capsule 09/15/16 Unknown Rx Levothyroxine [Synthroid] 100 microgm PO DAILY@0700 #60 09/15/16 Unknown Rx tablet Lorazepam [Ativan] 1 mg PO TID PRN #20 tablet 10/20/16 Unknown Rx - History of Present Illness-Resp Nature of Presenting Problem: 61 yo F presents to the ER with complaint of worsening SOB x2 days. Pt has a hx of COPD and CHF. Denies any CP, nausea, or diaphoresis. Onset/Duration: reports: 2 days ago Episode Frequency: chronic episodes Current Respiratory Medication Therapy: Initiated see nurses note Associated Symptoms: reports: shortness of breath, short of breath. denies: chest pain/soreness, cough, fever/chills Review of Systems - Adult - REVIEW OF SYSTEMS - ADULT Constitutional: denies: chills, fever Eyes: reports: no symptoms reported Ears, Nose, Mouth & Throat: reports: no symptoms reported Cardiovascular: denies: chest pain, palpitations Respiratory: reports: shortness of breath, wheezing. denies: cough Gastrointestinal: denies: diarrhea, nausea, vomiting Genitourinary: reports: no symptoms reported Musculoskeletal: reports: no symptoms reported Integumentary: reports: no symptoms reported Neurological: reports: no symptoms reported Psychiatric: reports: no symptoms reported Endocrine: reports: no symptoms reported Hematologic/Lymphatic: reports: no symptoms reported Allergic/Immunologic: reports: no symptoms reported All Other Systems: Reviewed and Negative Past History - Adult - PAST MEDICAL HISTORY-ADULT Review of Records: reports: Nursing Assessment Review, Medications Reviewed Cardiovascular: reports: blood clots, CAD, CHF, hyperlipidemia, IN Respiratory: reports: asthma, COPD Gastrointestinal: reports: GERD Musculoskeletal: reports: chronic pain Endocrine/Immune: reports: Diabetes, thyroid disorder, other (hx of DVT) - PRIOR SURGERIES/PROCEDURES Surgical/Procedure History: reports: CABG, cardiac stent, orthopedic (extremity ) (left arm/wrist) - PRIOR HOSPITALIZATIONS Prior Hospitalizations: reports: for other non-related - IMMUNIZATION STATUS Childhood Immunizations: See Nurse Assessment Flu Vaccine: See Nurse Assessment Physical Exam-General - PHYSICAL EXAM-ADULT Initial Vital Signs Reviewed: Yes - CONSTITUTIONAL General Appearance: alert, obese - EYES Eyes: PERRL/EOMI, pink conjunctivae - HEAD, EARS, NOSE, MOUTH & THROAT HENMT: normocephalic/atraumatic, normal ENT inspection, TMs normal, pharynx normal - NECK Neck: supple, normal inspection - RESPIRATORY Respiratory: no accessory muscle use, rales, rhonchi, wheezing - CARDIOVASCULAR Cardiovascular: normal peripheral pulses, regular rate, rhythm. negative: no edema - MUSCULOSKELETAL Back Exam: normal inspection, no CVA tenderness, no vertebral tenderness Extremity: normal range of motion, non-tender, normal gait, normal inspection - SKIN Integumentary: normal color, warm/dry, other (pitting edema to bilat LE) - NEUROLOGIC Neurologic: grossly normal, no motor/sensory deficits - PSYCHIATRIC Psych/Mental Status: normal mood/affect, normal thought content, normal thought process, oriented x 3 Progress - PLAN OF CARE/RESULTS Progress/Plan/Lab Results: Vital Signs - 8 hr 11/07/16 07:28 Temperature 98.1 F Pulse Rate 99 H Respiratory Rate 36 H O2 Sat by Pulse Oximetry 97 Laboratory Results - last 24 hr 11/07/16 11/07/16 11/07/16 07:45 07:45 07:45 WBC RBC Hgb Hct MCV MCH MCHC RDW Std Deviation Plt Count MPV Immature Gran % (Auto) Neut % (Auto) Lymph % (Auto) [place] % (Auto) Eos % (Auto) Baso % (Auto) Immature Gran # (Auto) Neut # (Auto) Lymph # (Auto) [place] # (Auto) Eos # (Auto) Baso # (Auto) PT INR APTT (Factor Assay) Sodium 137 Potassium 4.5 Chloride 99 Carbon Dioxide 26 Anion Gap 12 BUN 27 H Creatinine 1.2 H Estimated GFR/1.73 m2 46 BUN/Creatinine Ratio 23 Glucose 91 Calculated Osmolality 279 Calcium 9.0 Magnesium 1.9 Total Bilirubin 0.30 AST 31 H ALT 24 Alkaline Phosphatase 140 H Creatine Kinase 119 Troponin T 0.033 Riy-X-Jtvwknazaau Pept 2109 H Total Protein 7.9 Albumin 4.2 Globulin 4.0 Albumin/Globulin Ratio 1.0 11/07/16 11/07/16 07:45 07:45 WBC 6.31 RBC 4.02 L Hgb 10.5 L Hct 35.2 L MCV 87.6 MCH 26.1 L MCHC 29.8 L RDW Std Deviation 18.7 H Plt Count 284 MPV 10.1 Immature Gran % (Auto) 0.3 Neut % (Auto) 66.7 Lymph % (Auto) 23.0 Blanco % (Auto) 7.4 Eos % (Auto) 2.1 Baso % (Auto) 0.5 Immature Gran # (Auto) 0.02 Neut # (Auto) 4.21 Lymph # (Auto) 1.45 [place] # (Auto) 0.47 Eos # (Auto) 0.13 Baso # (Auto) 0.03 PT 21.1 H INR 1.80 H APTT (Factor Assay) 40.0 Sodium Potassium Chloride Carbon Dioxide Anion Gap BUN Creatinine Estimated GFR/1.73 m2 BUN/Creatinine Ratio Glucose Calculated Osmolality Calcium Magnesium Total Bilirubin AST ALT Alkaline Phosphatase Creatine Kinase Troponin T [id number]-Cjowjyjvvqz Pept Total Protein Albumin Globulin Albumin/Globulin Ratio Orders Category Date Time Status Cardiac Monitoring DIRECTED Care 11/07/16 07:34 Active Oxygen Therapy- ED Nursing DIRECTED Care 11/07/16 07:34 Active Saline Loc NOW Care 11/07/16 07:34 Active CHEST-PORTABLE [RAD] Stat Exams 11/07/16 07:35 Completed CBC WITH ELECTRONIC DIFF [HEME] Stat Lab 11/07/16 07:45 Completed CK PROFILE [SP CHEM] Stat Lab 11/07/16 07:45 Completed COMPREHENSIVE METABOLIC PANEL [CHEM] Stat Lab 11/07/16 07:45 Completed MAGNESIUM [CHEM] Stat Lab 11/07/16 07:45 Completed PRO B-NATRIURETIC PEPTIDE Stat Lab 11/07/16 07:45 Completed [address]IME WITH INR PL [COAG] Stat Lab 11/07/16 07:[address] [COAG] Stat Lab 11/07/16 07:45 Completed TROPONIN T Stat Lab 11/07/16 07:45 Completed Aspirin Med 11/07/16 07:34 Discontinued 325 mg PO STAT STA Furosemide [Lasix] Med 11/07/16 10:15 Discontinued 80 mg IV NOW ONE EKG [EKG] Stat Ther 11/07/16 07:34 Draft Result Diagrams: 11/07/16 07:45 11/07/16 07:45 - EKG 1 Time of EKG reading by physician:: 07:49 EKG Read and Signed by:: Alex Figueroa EKG Interpretation (*Must complete 3 of following elements*): Abnormal Rate: 65 Rhythm: normal sinus rhythm [place]: right QRS: RBB (incomplete) OR Interval: normal ST Wave: non-specific ST changes (ST&T wave abnormality, consider anterior ischemia) - XRAY 1 XRAY Study: Chest Impression: See EMR Report (pulmonary edema and questionable lingular and LLL atelectasis, per radiologist) Departure - Departure Date of Disposition Decision: 11/07/16 Time of Disposition Decision: 10:45 DIAGNOSIS: CHF exacerbation Disposition: ADMITTED INPATIENT 09 Certified Medical Emergency: Emergent Condition: Stable Referrals and Follow-Ups: Lex Alicea MD [Primary Care Provider] - - Critical Care Note This patient required my direct & personal management of CC.: No Attestation - Physician/ JESSE Attestation The physician spent face to face time with patient:: Yes Advanced Practice Provider documentation review:: The physician spent face to face time with this patient and agrees with all MLP documentation, treatment, and medical decision making by the MLP. See provider notes for further information. This chart was documented by the indicated scribe, (Laura Tariq Scribe) and accurately reflects the services I performed and decisions made by , Alex Figueroa MD, as attested by the provider's signature.
[2016-11-07] MEDS ORDERED: NORCO-10 PO ONE (11:19)
[2016-11-07] MEDS ORDERED: DEMEROL IV ONE (11:23)
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
--- NOTE | 2016-11-07 13:03 | Extremity Venous Study ---
EXAM: Venous U/S Right Leg HISTORY: right leg pain TECHNIQUE: Venous ultrasound of the right leg with compression and color Doppler COMMENT: The deep veins of the left leg are compressible with normal color Doppler flow. The great saphenous vein is incompletely compressible distally, but there is no obstruction to color Doppler flow. This finding was also present on the previous examination of 07/29/2016. IMPRESSION: No evidence of deep venous thrombosis. Chronic superficial venous thrombosis in the distal great saphenous vein. Electronically signed by Anthony Amaya 11/07/2016 1:00 PM
[2016-11-07] MEDS: DUONEB (A & A) INH SCH ×4 (13:11→22:44)
[2016-11-07] MEDS: ROCEPHIN 1 GM/NS 1 GM/50 ML IVPB IV SCH (13:23)
[2016-11-07] MEDS: DOXYCYCLINE 100 MG in NS 250 ML IV SCH (14:56)
[2016-11-07 15:56] LABS: BILIRUBIN URINE NEGATIVE (NEGATIVE); BLOOD URINE NEGATIVE (NEGATIVE); CLARITY CLEAR (CLEAR); COLOR YELLOW; GLUCOSE URINE NEGATIVE (NEGATIVE); LEUKOCYTES URINE 1+ (NEGATIVE); NITRITE URINE NEGATIVE (NEGATIVE); PROTEIN URINE NEGATIVE (NEGATIVE); SP GRAVITY URINE 1.005; URINE CAST NONE SEEN /LPF; URINE CRYSTAL NONE SEEN /HPF; URINE CULTURE PL NEEDED? YES; URINE EPITHELIAL CELLS <10 /HPF (<10); URINE RBC <10 /HPF (<10); URINE WBC <10 /HPF (<10); UROBILINOGEN URINE NORMAL
[2016-11-07 15:57] LABS: URINE SOURCE CLEAN CATCH
[2016-11-07] MEDS: LASIX IV SCH (23:02)
[2016-11-08] MEDS: DOXYCYCLINE 100 MG in NS 250 ML IV SCH ×2 (02:07→15:25)
[2016-11-08] MEDS: DUONEB (A & A) INH SCH ×6 (02:42→23:01)
[2016-11-08 08:00] LABS: MANUAL DIFF NEEDED? NO
[2016-11-08] MEDS: LASIX IV SCH (08:02)
[2016-11-08 08:03] LABS: BASO% 0.4 % (0.0-0.8); EOS# 0.08 X1000 (0.0-0.7); EOS% 1.8 % (0.0-10.0); HEMOGLOBIN 9.6 g/dL (12.0-16.0); IMM GRAN# 0.01 X1000 (0.0-0.04); IMM GRAN% 0.2 % (0.0-0.5); LYMPH# 0.55 X1000 (1.2-3.4); LYMPH% 12.4 % (20.5-51.1); MCH 25.9 PG (27-31); MCHC 29.1 g/dL (33-37); MCV 88.9 FL (81-99); MONO% 6.7 % (1.7-9.3); MPV 9.6 FL (7.4-10.4); NEUT% 78.5 % (42.2-75.2); PLT 231 X1000 (130-400); RBC 3.71 XMIL (4.2-5.4)
[2016-11-08 08:56] LABS: ALBUMIN 3.9 g/dL (3.5-5.0); CALCIUM 8.6 mg/dL (8.8-10.2); POTASSIUM 3.7 mmol/L (3.5-5.1); TOTAL BILIRUBIN 0.3 mg/dL (0.20-1.00); TOTAL PROTEIN 7.5 g/dL (6.3-8.3)
[2016-11-08] MEDS: DEMEROL IV PRN ×2 (12:26→22:07)
[2016-11-08] MEDS: ROCEPHIN 1 GM/NS 1 GM/50 ML IVPB IV SCH ×2 (12:26→14:46)
--- NOTE | 2016-11-08 13:14 | Diag Imaging Result Doc PS360 ---
EXAM: CT THORAX W/O CONTRAST HISTORY: pneumonia TECHNIQUE: Images were obtained from the lung apices through bases as per standard protocol. COMPARISON: 07/29/2016 FINDINGS: There is evidence of previous median sternotomy. There is an unchanged anterior chest wall hernia containing stomach there is a prominent right paratracheal lymph node measuring 1 cm in short axis similar appear appearance prior study. There is atherosclerotic calcification with a left subclavian artery stent at its origin from the arch. There is increased attenuation within the medial right middle lobe is nonspecific and could represent a small area of pneumonia or atelectasis. There is also some vague increased attenuation within the peripheral right upper lobe also may represent small area of atelectasis or infiltrate. There is an unchanged anterior left upper lobe pulmonary nodule which measures 7.4 mm. This is in a region of previously noted consolidation on CT examinations 2014 and 20 16 Continued follow-up is suggested as per Fleischner Society guidelines to confirm stability over 2-3 years. IMPRESSION: Small areas of increased attenuation right upper and middle lobe which may indicate small areas of atelectasis or or pneumonia. Unchanged left upper lobe pulmonary nodule from previous study with interval decrease in size from more remote studies 2015 [address] follow-up is recommended as per Fleischner Society guidelines to document stability. Electronically signed by Zabrina Lucero 11/08/2016 1:11 PM
--- NOTE | 2016-11-08 14:51 | PROGRESS NOTE ---
DATE: 11/08/2016 Today Ms. Hollis refers to be doing a little better. Shortness of breath has improved. OBJECTIVE: Vital signs: Blood pressure is 126/56, pulse of 53, respirations 18, temperature 97.9 degrees. General: Ms. Hollis is a 61-year-old female. She is in bed, no seemingly distress. HEENT: Mucosa is pink and moist. Anicteric. Acyanotic. Neck: Supple. Chest: Air entry is bilaterally reduced. There is a prolonged expiration phase of respiration and there is a diffuse bilateral wheezing. Cardiovascular: Regular rate and rhythm. Abdomen: Soft. Extremities: About 1+ edema but it is hard. CURRENT MEDICATIONS INCLUDE: 1. Lasix 40 IV b.i.d. 2. Ceftriaxone [address] g[address] scan of the lungs was done today which shows small area of increased attenuation right upper and middle lobe indicates more areas of atelectasis and/or pneumonia. Unchanged left upper lobe pulmonary nodule. ASSESSMENT: 1. Right upper middle lobe pneumonia patient is getting IV antibiotics. 2. History of atrial fibrillation currently rate controlled. Patient is on amiodarone and rivaroxaban for stroke prophylaxis. 3. Mild acute kidney injury. We will discontinue the IV Lasix since patient does not seems to be overly volume overloaded. 4. History of COPD not in acute exacerbation. 5. Bilateral lower extremity swelling with stasis dermatitis. I think seems to be chronic. 6. Diabetes mellitus. 7. Obesity with possible sleep apnea. 8. Restless leg syndrome. So I general I think Ms. Hollis is getting better from respiratory standpoint. Her creatinine went up slightly so I will discontinue the IV form of the Lasix and start her on her regular home medications. Patient does not look overly volume overloaded. We will continue with the current antibiotics and the nebulizations. I have restarted her home medications. I anticipate that hopefully by Friday we can discharge the patient. cc: Jos Martini MD
[2016-11-08] MEDS: NEURONTIN PO SCH (20:53)
[2016-11-09] MEDS: ATIVAN PO PRN ×2 (02:26→21:49)
[2016-11-09] MEDS: DOXYCYCLINE 100 MG in NS 250 ML IV SCH ×2 (02:31→16:13)
[2016-11-09] MEDS: DUONEB (A & A) INH SCH ×6 (03:50→23:00)
[2016-11-09] MEDS: PEPCID PO SCH (06:02)
[2016-11-09] MEDS: SYNTHROID PO SCH (06:02)
[2016-11-09] MEDS: SPIRIVA INH SCH (07:50)
[2016-11-09 07:58] LABS: MANUAL DIFF NEEDED? NO
[2016-11-09 07:59] LABS: BASO% 0.2 % (0.0-0.8); EOS# 0.11 X1000 (0.0-0.7); EOS% 2.7 % (0.0-10.0); HEMATOCRIT 33.1 % (37.0-47.0); HEMOGLOBIN 9.6 g/dL (12.0-16.0); IMM GRAN# 0.01 X1000 (0.0-0.04); IMM GRAN% 0.2 % (0.0-0.5); LYMPH# 0.78 X1000 (1.2-3.4); LYMPH% 19.2 % (20.5-51.1); MCH 25.8 PG (27-31); MONO# 0.38 X1000 (0.11-0.59); MONO% 9.4 % (1.7-9.3); MPV 9.8 FL (7.4-10.4); NEUT% 68.3 % (42.2-75.2); PLT 221 X1000 (130-400); RBC 3.72 XMIL (4.2-5.4)
[2016-11-09 08:12] LABS: CALCIUM 8.6 mg/dL (8.8-10.2); POTASSIUM 4.1 mmol/L (3.5-5.1)
[2016-11-09] MEDS: ALDACTONE PO SCH (09:29)
[2016-11-09] MEDS: XARELTO PO SCH (09:30)
[2016-11-09] MEDS: LASIX PO SCH (09:30)
[2016-11-09] MEDS: LOPRESSOR PO SCH (09:30)
[2016-11-09] MEDS: CORDARONE PO SCH (09:30)
[2016-11-09] MEDS: SINGULAIR PO SCH (09:30)
[2016-11-09] MEDS: ASPIRIN EC PO SCH (09:30)
[2016-11-09] MEDS: IMDUR PO SCH (09:31)
[2016-11-09] MEDS: NEURONTIN PO SCH ×2 (09:31→21:49)
[2016-11-09] MEDS: ROCEPHIN 1 GM/NS 1 GM/50 ML IVPB IV SCH (12:40)
--- NOTE | 2016-11-09 13:28 | PROGRESS NOTE ---
DATE: 11/09/2016 SUBJECTIVE: This patient states that she is doing better. She is still complaining of shortness of breath but compared with the admission is better. OBJECTIVE: Vital Signs: Temperature 98.5 degrees, pulse 72, respiratory rate 18, blood pressure 125/52, O2 saturation 100% on 2 L of nasal cannula. HEENT: Head normocephalic. No trauma. PERRLA. Neck: Supple. No JVD. No masses. Central trachea. Chest: Decreased breath sounds globally. Prolonged expiratory phase and diffuse bilateral wheezing, mild crackles at the level of the right lung. Cardiovascular: RRR. Abdomen: Soft, nontender, nondistended. Extremities: 1+ lower extremity edema. She has some bluish color at the level of the toes and she states that it has been like this for at least 1 month. Neurological: The patient is alert and oriented x3. No focal neurological deficits. LABORATORY: WBC 4, hemoglobin 9.6, hematocrit 33.1, platelets 221,000. Sodium 141, potassium 4.1, chloride 103, bicarbonate 31, BUN 24, creatinine 1.1, glucose 91, calcium 8.6. ProBNP 975. ASSESSMENT AND PLAN: 1. Right upper and middle lobe pneumonia. Continue with IV antibiotics. As per the patient, she is getting better. We will continue with the same management. 2. History of atrial fibrillation, rate controlled. Patient is on amiodarone and rivaroxaban for stroke prophylaxis. 3. Mild acute kidney injury. The IV Lasix was discontinued yesterday and the BUN and creatinine improved today, it looks like this is her baseline. We will continue with the same management. 4. History of COPD. She is having some wheezing today. We will continue with breathing treatment and oxygen. This patient states that she has been with home oxygen. 5. Bilateral lower extremity swelling with stasis dermatitis. This is chronic. Continue with the same management. 6. Type 2 diabetes. Continue with the same treatment. 7. Morbid obesity. Aware. 8. Restless legs syndrome. Aware. cc: Humphrey Gooden MD
[2016-11-09] MEDS: ROBAXIN PO PRN (18:01)
[2016-11-09] MEDS: DEMEROL IV PRN (21:49)
[2016-11-10] MEDS: DOXYCYCLINE 100 MG in NS 250 ML IV SCH ×2 (03:13→15:33)
[2016-11-10] MEDS: DUONEB (A & A) INH SCH ×6 (03:14→23:04)
[2016-11-10] MEDS: SYNTHROID PO SCH (06:07)
[2016-11-10] MEDS: PEPCID PO SCH (06:07)
[2016-11-10] MEDS: DEMEROL IV PRN ×2 (06:07→12:34)
[2016-11-10 07:41] LABS: BASO% 0.5 % (0.0-0.8); EOS# 0.12 X1000 (0.0-0.7); EOS% 2.8 % (0.0-10.0); HEMATOCRIT 31.7 % (37.0-47.0); IMM GRAN# 0.01 X1000 (0.0-0.04); IMM GRAN% 0.2 % (0.0-0.5); LYMPH# 0.87 X1000 (1.2-3.4); MANUAL DIFF NEEDED? NO; MCH 25.6 PG (27-31); MCHC 28.4 g/dL (33-37); MCV 90.1 FL (81-99); MONO# 0.42 X1000 (0.11-0.59); MONO% 9.6 % (1.7-9.3); MPV 9.6 FL (7.4-10.4); NEUT% 66.9 % (42.2-75.2); PLT 218 X1000 (130-400); RBC 3.52 XMIL (4.2-5.4)
[2016-11-10 08:19] LABS: CALCIUM 8.6 mg/dL (8.8-10.2); POTASSIUM 4.5 mmol/L (3.5-5.1)
[2016-11-10] MEDS: ASPIRIN EC PO SCH (09:31)
[2016-11-10] MEDS: NEURONTIN PO SCH ×2 (09:31→20:00)
[2016-11-10] MEDS: CORDARONE PO SCH (09:31)
[2016-11-10] MEDS: ALDACTONE PO SCH (09:31)
[2016-11-10] MEDS: LASIX PO SCH (09:31)
[2016-11-10] MEDS: IMDUR PO SCH (09:31)
[2016-11-10] MEDS: XARELTO PO SCH (09:32)
[2016-11-10] MEDS: LOPRESSOR PO SCH (09:32)
[2016-11-10] MEDS: SINGULAIR PO SCH (09:32)
--- NOTE | 2016-11-10 09:42 | PROGRESS NOTE ---
DATE: 11/10/2016 SUBJECTIVE: This patient states that she is doing better. We have a positive urine culture that showed Pseudomonas, pansensitive. She is not complaining of any burning sensation or problem to urinate. She is still having mild shortness of breath but compared with she is better. OBJECTIVE: Vital Signs: Temperature 98.7 degrees, pulse 70, respiratory rate 18, blood pressure 131/63, O2 saturation 96% on 2 L of nasal cannula. HEENT: Head normocephalic. No trauma. PERRLA. Neck: Supple. No JVD. No masses. Central trachea. Chest: Decreased breath sounds globally. Prolonged expiratory phase and diffuse bilateral wheezing, mild crackles at the level of the right lung. Cardiovascular: Regular rate and rhythm. Abdomen: Soft, nontender, nondistended. Extremities: 1 to 2+ lower extremity edema. She has some bluish color at the level of the toes and she states that it has been like for at least 1 month. Neurological: The patient is alert and oriented x3. No focal neurological deficits. LABORATORY: WBC 4.3, hemoglobin 9, hematocrit 31.7, platelets 218,000. Sodium 137, potassium 4.5, chloride 99, bicarbonate 27, BUN 28, creatinine 1.1, glucose 90, calcium 8.6. ASSESSMENT AND PLAN: 1. Right upper and middle lobe pneumonia. Continue with IV antibiotics. As per the patient, she is getting better. She is on ceftriaxone and doxycycline. We will continue with the same management. 2. Urinary tract infection secondary to Pseudomonas, pansensitive, continue with the same treatment. She is not complaining of belly pain or burning sensation/pain during urination. 3. History of atrial fibrillation rate controlled. The patient is on amiodarone and rivaroxaban for stroke prophylaxis. 4. Mild acute kidney injury. This is her baseline. Continue with the same management. Usually at home she is on a low dose of furosemide, 20 p.o. daily. We will continue with the same treatment and also spironolactone. 5. History of chronic obstructive pulmonary disease. She is still having wheezing today, she has a chronic obstructive pulmonary disease exacerbation. This is likely secondary to pneumonia. The patient states that she has been with home oxygen. 6. Bilateral lower extremity swelling and stasis dermatitis. This is chronic. Continue with the same management. 7. Essential tremors. Aware. 8. Restless legs syndrome. Aware. 9. Type 2 diabetes. Controlled. Continue with the same treatment. 10. Morbid obesity. Aware. cc: Humphrey Gooden MD
[2016-11-10] MEDS: ROCEPHIN 1 GM/NS 1 GM/50 ML IVPB IV SCH (12:29)
[2016-11-10] MEDS ORDERED: NS 250 ML ONE (15:43)
[2016-11-10] MEDS: ATIVAN PO PRN (20:00)
[2016-11-11] MEDS: DEMEROL IV PRN (00:33)
[2016-11-11] MEDS: DUONEB (A & A) INH SCH ×6 (02:52→23:48)
[2016-11-11] MEDS: DOXYCYCLINE 100 MG in NS 250 ML IV SCH (04:00)
[2016-11-11] MEDS: PEPCID PO SCH (06:07)
[2016-11-11] MEDS: SYNTHROID PO SCH (06:07)
[2016-11-11 07:44] LABS: BASO% 0.5 % (0.0-0.8); EOS% 2.4 % (0.0-10.0); HEMATOCRIT 31.9 % (37.0-47.0); HEMOGLOBIN 8.9 g/dL (12.0-16.0); IMM GRAN# 0.01 X1000 (0.0-0.04); IMM GRAN% 0.2 % (0.0-0.5); LYMPH% 18.9 % (20.5-51.1); MANUAL DIFF NEEDED? YES; MCH 25.4 PG (27-31); MCHC 27.9 g/dL (33-37); MCV 90.9 FL (81-99); MONO# 0.24 X1000 (0.11-0.59); MONO% 5.7 % (1.7-9.3); MPV 9.1 FL (7.4-10.4); NEUT% 72.3 % (42.2-75.2); PLT 208 X1000 (130-400); RBC 3.51 XMIL (4.2-5.4)
[2016-11-11 08:00] LABS: CALCIUM 8.8 mg/dL (8.8-10.2); POTASSIUM 4.3 mmol/L (3.5-5.1)
[2016-11-11] MEDS: SPIRIVA INH SCH ×2 (08:14→23:56)
[2016-11-11] MEDS ORDERED: DOXYCYCLINE 100 MG in NS 250 ML IV SCH (08:22)
[2016-11-11] MEDS: NEURONTIN PO SCH ×2 (09:54→20:31)
[2016-11-11] MEDS: SINGULAIR PO SCH (09:54)
[2016-11-11] MEDS: ALDACTONE PO SCH (09:54)
[2016-11-11] MEDS: LOPRESSOR PO SCH (09:54)
[2016-11-11] MEDS: CORDARONE PO SCH (09:54)
[2016-11-11] MEDS: ASPIRIN EC PO SCH (09:54)
[2016-11-11] MEDS: IMDUR PO SCH (09:55)
[2016-11-11] MEDS: XARELTO PO SCH (09:55)
[2016-11-11] MEDS: LASIX PO SCH (09:57)
[2016-11-11 11:08] LABS: LYMPHS 7 % (21-51); MONO 2 % (1-9)
[2016-11-11] MEDS: ROCEPHIN 1 GM/NS 1 GM/50 ML IVPB IV SCH (12:33)
[2016-11-11] MEDS: NORCO-10 PO PRN (16:25)
[2016-11-11] MEDS: DOXYCYCLINE PO SCH (20:31)
[2016-11-11] MEDS: OMNICEF PO SCH (20:31)
[2016-11-12] MEDS: DUONEB (A & A) INH SCH ×6 (03:24→22:38)
[2016-11-12] MEDS: NORCO-10 PO PRN ×3 (03:49→19:31)
[2016-11-12] MEDS: PEPCID PO SCH (06:15)
[2016-11-12] MEDS: SYNTHROID PO SCH (06:15)
[2016-11-12] MEDS: SPIRIVA INH SCH (07:29)
[2016-11-12] MEDS: ALDACTONE PO SCH (08:09)
[2016-11-12] MEDS: IMDUR PO SCH (08:09)
[2016-11-12] MEDS: LASIX PO SCH (08:10)
[2016-11-12] MEDS: SINGULAIR PO SCH (08:10)
[2016-11-12] MEDS: OMNICEF PO SCH ×2 (08:10→20:13)
[2016-11-12] MEDS: ASPIRIN EC PO SCH (08:10)
[2016-11-12] MEDS: DOXYCYCLINE PO SCH ×2 (08:10→20:13)
[2016-11-12] MEDS: CORDARONE PO SCH (08:10)
[2016-11-12] MEDS: LOPRESSOR PO SCH (08:10)
[2016-11-12] MEDS: NEURONTIN PO SCH ×2 (08:10→20:13)
[2016-11-12] MEDS: XARELTO PO SCH (08:10)
--- NOTE | 2016-11-12 11:13 | PROGRESS NOTE ---
DATE: 11/12/2016 SUBJECTIVE: Patient notes that she is feeling a little bit better. Still having some shortness of breath. Has not really been out of bed. PHYSICAL EXAM: Temp 98.4 degrees, pulse 56, respiratory 147/60, sat 100% on 2 L.General: Patient is awake, alert. She is in mild respiratory distress. She is pleasant to talk with. Neck: Supple. CV: Regular rhythm and rate. Chest: Decreased breath sounds but equal bilaterally. Positive rhonchi. No apparent wheezing currently. She does have mild crackles on the right. Abdomen: Soft. Extremities: Moves all extremities. She does have 1+ edema bilateral lower extremities. ASSESSMENT: 1. Right upper and middle lobe pneumonia. Continue antibiotics. We will change doxycycline to p.o. 2. UTI on Pseudomonas. She is currently being treated. 3. History of atrial fibrillation. 4. Mild acute kidney injury. 5. Chronic obstructive pulmonary disease with mild exacerbation. 6. Type 2 diabetes. 7. Restless leg. PLAN: We will begin changing patient to p.o. antibiotics. Hopefully home in the next 1-2 days. cc: Fernie English MD
[2016-11-13] MEDS: DUONEB (A & A) INH SCH ×6 (02:50→23:14)
[2016-11-13] MEDS: NORCO-10 PO PRN ×2 (04:19→13:26)
[2016-11-13] MEDS: PEPCID PO SCH (06:12)
[2016-11-13] MEDS: SYNTHROID PO SCH (06:12)
[2016-11-13] MEDS: SPIRIVA INH SCH (07:43)
[2016-11-13] MEDS: LOPRESSOR PO SCH (08:12)
[2016-11-13] MEDS: OMNICEF PO SCH ×2 (08:12→20:03)
[2016-11-13] MEDS: NEURONTIN PO SCH ×2 (08:12→20:03)
[2016-11-13] MEDS: LASIX PO SCH (08:12)
[2016-11-13] MEDS: DOXYCYCLINE PO SCH ×2 (08:12→20:03)
[2016-11-13] MEDS: SINGULAIR PO SCH (08:12)
[2016-11-13] MEDS: CORDARONE PO SCH (08:12)
[2016-11-13] MEDS: ASPIRIN EC PO SCH (08:12)
[2016-11-13] MEDS: XARELTO PO SCH (08:12)
[2016-11-13] MEDS: ALDACTONE PO SCH (08:12)
[2016-11-13] MEDS: IMDUR PO SCH (08:12)
[2016-11-13] MEDS ORDERED: ATIVAN PO PRN ×2 (08:21→14:10)
--- NOTE | 2016-11-13 08:56 | Diag Imaging Result Doc PS360 ---
EXAM: CHEST-2 VIEWS HISTORY: hypoxia TECHNIQUE: COMPARISON: 11/07/2016 FINDINGS: Sternal wires are present. The heart is not enlarged. Mild vascular distention. The lungs are well expanded. No pleural effusions. No consolidation. IMPRESSION: Increased interstitial markings believed to be pulmonary edema. Electronically signed by Anup Mayer 11/13/2016 8:53 AM
--- NOTE | 2016-11-13 09:20 | PROGRESS NOTE ---
DATE: 11/13/2016 SUBJECTIVE: The patient notes that she is feeling a little bit better but she is still tired and fatigued. Still having difficulty ambulating secondary to her shortness of breath. OBJECTIVE: Vital signs: Temperature 97 degrees, pulse 55, respiratory rate 16, BP 156/71, saturation 96% on room air. General: Patient is awake, alert. She is currently in no respiratory distress. She is lying flat in the bed. HEENT: Normocephalic, atraumatic. Neck: Supple. CV: Regular rate. Chest: Decreased breath sounds but equal bilaterally. Appears more effort driven. No wheezing. No crackles. No accessory muscle use. Abdomen: Soft, obese, nontender, nondistended. Extremities: Trace edema. Otherwise moves all extremities well. Neurologic: No focal changes. Skin: No rashes. LABS: No current labs today. ASSESSMENT: 1. Left lower lobe pneumonia. 2. Pulmonary edema, improved. 3. Right lower extremity cellulitis. Continues to improve. 4. Atrial fibrillation, rate controlled. 5. Acute kidney injury, stable. 6. Urinary tract infection with Pseudomonas. 7. Chronic obstructive pulmonary disease with mild exacerbation. 8. Chronic essential tremors. PLAN: We will continue patient's current medications. We will continue to wean as possible. We will recheck a chest x-ray. Labs in the a.m. Most likely, she will need to go to rehab. We will get adoption social worker involved. Further orders as needed. cc: Fernie English MD
[2016-11-13] MEDS: ATIVAN PO PRN (09:31)
[2016-11-13] MEDS: MIRALAX PO SCH (09:31)
[2016-11-13] MEDS: DULERA 200 MCG/5 MCG INHALER INH SCH (21:26)
[2016-11-14] MEDS: NORCO-10 PO PRN ×2 (00:17→08:50)
[2016-11-14] MEDS: DUONEB (A & A) INH SCH ×4 (04:08→16:05)
[2016-11-14] MEDS: DULERA 200 MCG/5 MCG INHALER INH SCH ×2 (04:10→08:09)
[2016-11-14] MEDS: PEPCID PO SCH (06:00)
[2016-11-14] MEDS: SYNTHROID PO SCH (06:00)
[2016-11-14 06:40] LABS: HEMATOCRIT 31.2 % (37.0-47.0); HEMOGLOBIN 8.8 g/dL (12.0-16.0); MCH 25.1 PG (27-31); MCHC 28.2 g/dL (33-37); MCV 89.1 FL (81-99); MPV 9.4 FL (7.4-10.4); RBC 3.5 XMIL (4.2-5.4)
[2016-11-14 07:00] LABS: ALBUMIN 3.9 g/dL (3.5-5.0); CALCIUM 9.1 mg/dL (8.8-10.2); MAGNESIUM 1.9 mg/dL (1.5-2.7); POTASSIUM 4.8 mmol/L (3.5-5.1); TOTAL BILIRUBIN 0.3 mg/dL (0.20-1.00); TOTAL PROTEIN 7.4 g/dL (6.3-8.3)
[2016-11-14] MEDS: SPIRIVA INH SCH (07:39)
--- NOTE | 2016-11-14 08:01 | Diag Imaging Result Doc PS360 ---
EXAM: HEAD W/O CONTRAST TECHNIQUE: Dose reduction protocol was used. INDICATION: Fall COMPARISON: None. FINDINGS: There is no definite acute infarct given the limited sensitivity of CT versus MRI. There is no discrete intracranial mass, mass effect, or intracranial hemorrhage. The surrounding soft tissues and bony structures are essentially unremarkable. IMPRESSION: No evidence of acute intracranial pathology. Electronically signed by Dany Garcia 11/14/2016 7:59 AM
[2016-11-14] MEDS: MIRALAX PO SCH (08:49)
[2016-11-14] MEDS: DOXYCYCLINE PO SCH (08:50)
[2016-11-14] MEDS: OMNICEF PO SCH (08:50)
[2016-11-14] MEDS: ASPIRIN EC PO SCH (08:50)
[2016-11-14] MEDS: IMDUR PO SCH (08:50)
[2016-11-14] MEDS: LASIX PO SCH (08:51)
[2016-11-14] MEDS: NEURONTIN PO SCH (08:51)
[2016-11-14] MEDS: ROBAXIN PO PRN (08:51)
[2016-11-14] MEDS: LOPRESSOR PO SCH (08:51)
[2016-11-14] MEDS: CORDARONE PO SCH (08:51)
[2016-11-14] MEDS: SINGULAIR PO SCH (08:51)
[2016-11-14] MEDS: ALDACTONE PO SCH (08:51)
[2016-11-14 15:57] VITALS: BP 127/64
[2016-11-14] MEDS ORDERED: XARELTO PO SCH (17:00)
[2016-11-14] MEDS ORDERED: OMNICEF PO SCH (21:00)
[2016-11-14] MEDS ORDERED: DOXYCYCLINE PO SCH (21:00)
--- NOTE | 2016-11-16 08:50 | DISCHARGE SUMMARY ---
ADMISSION DATE: 11/07/2016 DISCHARGE DATE: 11/14/2016 DIAGNOSES: 1. Left lower lobe pneumonia. 2. Pulmonary edema, improved. 3. Right lower extremity cellulitis, improved. 4. Atrial fibrillation with rate controlled. 5. Acute kidney injury, improved. 6. Pseudomonas urinary tract infection. 7. Chronic obstructive pulmonary disease with mild exacerbation. 8. Chronic essential tremors. DIAGNOSTICS: 1. On 11/07/2016, right leg venous Doppler revealed. No evidence of DVT. Chronic superficial venous thrombosis in the distal great saphenous vein. 2. On 11/08/2016, CT of the chest revealed small areas of increased attenuation in the right upper and middle lobe which may indicate atelectasis or pneumonia. Unchanged left upper lobe pulmonary nodule from studies back to 2014 with recommended to continue followup CTs. 3. CT of the head revealed no evidence of acute intracranial pathology. MICROBIOLOGY: Blood cultures x2 revealed no growth after 5 days. Urine culture revealed Pseudomonas aeruginosa. HOSPITAL COURSE: Ms. Hollis presented to the emergency room complaining shortness of breath that increased over the 2 days prior, as well as right lower extremity pain. She was found to have pneumonia for which blood cultures were obtained and she was initially covered with doxycycline and Omnicef. She was also found to have a Pseudomonas UTI for which she was treated with the same. She remained afebrile with white counts being within normal limits. Her cellulitis did improve, and on the day of discharge, she denied any shortness of breath. She was able to lie flat in bed. She was doing much better. DISCHARGE PHYSICAL EXAMINATION: Cardiovascular: Regular rate and rhythm. S1, S2 appreciated. Pulmonary: Breath sounds clear with no increased work of breathing noted. Gastrointestinal: Abdomen is soft, nontender, nondistended with bowel sounds in all 4 quadrants. Extremities: No clubbing, cyanosis. She does have some trace edema. Neurologic: She is alert and oriented x3. MEDICATIONS: MiraLAX 17 g p.o. daily, isosorbide mononitrate ER 60 mg daily, vitamin D 50,000 units every 7 days, Dulera 200/5 two inhalations b.i.d., methocarbamol 750 q.8 hours p.r.n., Ativan 1 mg t.i.d. p.r.n., [place] 10 q.8 hours p.r.n., gabapentin 300 p.o. b.i.d., Lasix 20 mg daily, spironolactone 25 daily, singular 10 daily, albuterol nebs q.8 hours p.r.n., Pepcid 20 mg daily, enteric-coated aspirin 81 mg daily, amiodarone 400 mg daily, Xarelto 20 mg daily. Synthroid 100 mcg daily, metoprolol tartrate 25 daily, Spiriva 18 mcg daily, doxycycline 100 mg p.o. q.12 hours and Omnicef 300 p.o. b.i.d. DISCHARGE VITAL SIGNS: Blood pressure is 127/64 with a heart rate of 60, respirations 18, temperature is 97.9 degrees oral with oxygen saturations at 2 L at 96% to 100%. DISCHARGE ACTIVITY: As tolerated. DISCHARGE FOLLOWUP: She is to see her PCP, Dr. Lex Alicea, within a week or sooner if needed. CONDITION: She is discharged home in stable condition with family members. Dictated by ANITA Garcia for Fernie English MD cc: ANITA Garcia MD
== END 2016-11-14 18:33 | disposition home or self-care (01) ==
LOC: P.ED 07:25 → SUATTDRO 11:50 → P.MEDSURG 11:50
PROVIDERS: ATTEND Family Medicine

== ENCOUNTER 2019-03-18 18:40 | Inpatient (IN) ==
--- NOTE | 2019-03-18 19:39 | PROVIDER DOCUMENTATION ---
HPI-General Adult - General Chief Complaint: Shortness of Breath Stated Complaint: CHILLS, SOB Time Seen by Provider: 03/18/19 19:30 Source: patient Allergies/Adverse Reactions: Patient Allergies Allergy/AdvReac Type Severity Reaction Status Date / Time diazepam [From Valium] Allergy Unknown RASH Verified 03/18/19 20:50 levofloxacin [From Levaquin] Allergy RASH Verified 03/18/19 20:50 Home Medications: Home Medication List Medication Instructions Recorded Confirmed Last Taken Type Aspirin EC 325 mg PO DAILY 05/27/14 03/18/19 03/18/19 History Hydrocodone/Acetaminophen [[place] 1 each PO Q8H PRN PRN 05/28/14 03/18/19 03/18/19 History 10-325 Tablet] Rivaroxaban [Xarelto] 20 mg PO QAM 07/29/16 03/18/19 03/18/19 History Levothyroxine [Synthroid] 100 microgm PO DAILY@0700 #60 09/15/16 03/18/19 03/17/19 Rx tablet Gabapentin [Neurontin] 300 mg PO TID 09/04/17 03/18/19 03/12/19 History Pramipexole [Mirapex] 0.5 mg PO TID 12/02/17 03/18/19 03/12/19 History Ergocalciferol (Vitamin D2) 50,000 units PO DIRECTED 02/19/18 03/18/19 03/12/19 History [Vitamin D] Melatonin 10 mg PO QHS PRN 09/09/18 03/18/19 Unknown History Isosorbide Dinitrate [Isordil] 20 mg PO TID #180 tab 09/11/18 03/18/19 03/17/19 Rx Nitroglycerin Sl [Nitroglycerin] 0.4 mg SUBLINGUAL Q5M PRN PRN #5 09/11/18 03/18/19 03/16/19 Rx tab Omeprazole [Prilosec] 20 mg PO DAILY@0700 #90 cap 09/11/18 03/18/19 03/12/19 Rx Albuterol Sulfate Inhaler 2 puff INH Q6H PRN PRN #1 inhaler 02/14/19 03/18/19 03/16/19 Rx [Ventolin Hfa] Hydrochlorothiazide 25 mg PO DAILY 02/14/19 03/18/19 03/17/19 History Citalopram Hydrobromide 1 tab PO DAILY 03/18/19 03/18/19 03/17/19 History [Citalopram HBr] Diclofenac Sodium 1 applicatn TOP DAILY PRN 03/18/19 03/18/19 03/16/19 History Furosemide [Lasix] 20 mg PO BID 03/18/19 03/18/19 03/16/19 History Lubiprostone [Amitiza] 1 cap PO BID 03/18/19 03/18/19 03/18/19 History Montelukast Sodium 1 tab PO DAILY 03/18/19 03/18/19 03/12/19 History Potassium Chloride 1 tab PO BID 03/18/19 03/18/19 03/16/19 History Spironolactone [Aldactone] 25 mg PO DAILY 03/18/19 03/18/19 03/12/19 History Sucralfate [Carafate] 1 gm PO BID 03/18/19 03/18/19 03/12/19 History Tiotropium [place] [Spiriva 2 puff INH QAM 03/18/19 03/18/19 03/17/19 History Respimat] - History of Present Illness -Gen Adult Nature of Presenting Problems: 63 YO F pmh for COPD with c/o SOB, wheezing, intermittent fever x 2 days. She also has c/o right flank pain. Pt not complaining of chest pain. She was seen here 1 month ago and was told to get an out patient VQ scan for SOB, for which she has not followed up with. Location of Pain/Injury: reports: other (SOB) Onset/Duration: reports: 2 days ago Timing: reports: still present, constant Context/Activities at Onset: reports: none Modifying Factors: improves with: nothing, other (has tried breathing treatments with minimal relief) Associated Symptoms: reports: fever/chills Similar Symptoms Previously?: No Recently seen or treated by another doctor?: No Review of Systems - Adult - REVIEW OF SYSTEMS - ADULT Constitutional: reports: chills, fever Eyes: reports: no symptoms reported Ears, Nose, Mouth & Throat: reports: no symptoms reported Cardiovascular: denies: edema, palpitations Respiratory: reports: cough, shortness of breath, wheezing Gastrointestinal: denies: abdominal pain, nausea, vomiting Genitourinary: reports: no symptoms reported Musculoskeletal: reports: no symptoms reported Integumentary: reports: no symptoms reported Neurological: reports: no symptoms reported Endocrine: reports: no symptoms reported Hematologic/Lymphatic: reports: no symptoms reported Past History - Adult - PAST MEDICAL HISTORY-ADULT Review of Records: reports: Old Records Reviewed Major Childhood Illnesses: reports: denies history Cardiovascular: reports: blood clots, CAD, CHF, hyperlipidemia, [place] Respiratory: reports: asthma, COPD, pneumonia Gastrointestinal: reports: GERD Obstetrical/Gynecological: reports: denies history Genitourinary: reports: denies history Musculoskeletal: reports: chronic pain Neurological: reports: denies history Endocrine/Immune: reports: Diabetes, thyroid disorder, other (hx of DVT) Other Conditions: reports: denies history - PRIOR SURGERIES/PROCEDURES Surgical/Procedure History: reports: CABG, cardiac stent, orthopedic (extremity) (left arm/wrist) - PRIOR HOSPITALIZATIONS Prior Hospitalizations: reports: for other non-related - IMMUNIZATION STATUS Childhood Immunizations: See Nurse Assessment Flu Vaccine: See Nurse Assessment - FAMILY HISTORY Family History: reviewed, not pertinent - SOCIAL HISTORY Substance Use: denies Living Situation: friend Physical Exam-General - PHYSICAL EXAM-ADULT Initial Vital Signs Reviewed: Yes - CONSTITUTIONAL General Appearance: alert, no apparent distress, other (cough on exam) - EYES Eyes: PERRL/EOMI, pink conjunctivae - HEAD, EARS, NOSE, MOUTH & THROAT HENMT: moist mucous membranes - NECK Neck: supple - RESPIRATORY Respiratory: no respiratory distress, wheezing. negative: stridor - CARDIOVASCULAR Cardiovascular: regular rate, rhythm - GASTROINTESTINAL (ABDOMEN) Abdominal Exam: non tender, soft - MUSCULOSKELETAL Back Exam: CVA tenderness (right) Extremity: normal inspection, no pedal edema - SKIN Integumentary: normal color, normal turgor, warm/dry - NEUROLOGIC Neurologic: grossly normal - PSYCHIATRIC Psych/Mental Status: normal thought content Progress - PLAN OF CARE/RESULTS Progress/Plan/Lab Results: Vital Signs - 8 hr 03/18/19 18:42 Temperature 98.1 F Pulse Rate 79 Respiratory Rate 18 Blood Pressure 131/65 O2 Sat by Pulse Oximetry 98 Orders Category Date Time Status EKG [EKG] Stat Ther 03/18/19 18:47 Ordered Result Diagrams: 03/18/19 20:47 03/18/19 20:47 - REASSESSMENT Reassessment #1 Time Reassessed: 22:10 Status: unchanged (labs reviewed. hyponatremia and anemia. imaging reviewed showing pulm congestion and pna. UA postive for UTI.) - EKG 1 Time of EKG reading by physician:: 18:55 EKG Read and Signed by:: Adama Pacheco EKG Interpretation (*Must complete 3 of following elements*): Abnormal Rate: 86 Rhythm: NSR QRS: normal CT Interval: normal ST Wave: non-specific ST changes (t wave inversions in v2, v3.) Prior EKG Comparison: changes noted (minor changes in t waves from previous EKG on 02/15/19.) Departure - Departure Date of Disposition Decision: 03/18/19 Time of Disposition Decision: 22:06 DIAGNOSIS: Pneumonia, Urinary tract infection Disposition: ADMITTED INPATIENT 09 Certified Medical Emergency: Emergent Condition: Stable - Critical Care Note This patient required my direct & personal management of CC.: No Attestation - Physician/ JESSE Attestation The physician spent face to face time with patient:: Yes Advanced Practice Provider documentation review:: Supervising physician onsite and consulted in the evaluation and care of this patient. The physician did have a face to face encounter with the patient.
[2019-03-18] MEDS ORDERED: XOPENEX NEB INH ONE ×2 (19:41→22:03)
[2019-03-18] MEDS ORDERED: SOLU-MEDROL IV ONE (19:42)
[2019-03-18] MEDS ORDERED: PULMICORT INH ONE (19:43)
[2019-03-18] MEDS ORDERED: NS NEB INH SCH ×2 (19:45→22:15)
--- NOTE | 2019-03-18 20:16 | EKG Report ---
Test Performed on : 03/18/2019 6:49:55 PM Test Reason : sob Blood Pressure : / mmHG Vent. Rate : 086 BPM Atrial Rate : 086 BPM P-R Int : 156 ms QRS Dur : 084 ms QT Int : 392 ms P-R-T Axes : 089 073 040 degrees QTc Int : 469 ms Normal sinus rhythm. T wave abnormality, consider anterior ischemia Abnormal ECG When compared with ECG of 13-FEB-2019 23:54, (Unconfirmed) T wave inversion now evident in Anterior leads Unconfirmed Result
--- NOTE | 2019-03-18 20:20 | Diag Imaging Result Doc PS360 ---
EXAM: CHEST-2 VIEWS 03/18/2019 HISTORY: SOB TECHNIQUE: PA and lateral chest COMMENT: There is increased interstitial markings. This is worse than on 02/14/2019. There are sternotomy wires. There is borderline cardiomegaly. IMPRESSION: Pulmonary edema versus pneumonia. Borderline cardiomegaly. Electronically signed by Anthony Amaya 03/18/2019 8:17 PM
[2019-03-18 21:00] LABS: BASO# 0.01 X1000 (0.0-0.2); BASO% 0.1 % (0.0-0.8); EOS# 0.03 X1000 (0.0-0.7); EOS% 0.4 % (0.0-10.0); HEMATOCRIT 34.6 % (37.0-47.0); HEMOGLOBIN 10.7 g/dL (12.0-16.0); IMM GRAN# 0.02 X1000 (0.0-0.04); IMM GRAN% 0.3 % (0.0-0.5); LYMPH# 0.96 X1000 (1.2-3.4); LYMPH% 12.2 % (20.5-51.1); MCH 27.6 PG (27-31); MCHC 30.9 g/dL (33-37); MCV 89.2 FL (81-99); MONO# 0.53 X1000 (0.11-0.59); MONO% 6.7 % (1.7-9.3); MPV 10.1 FL (7.4-10.4); NEUT# 6.34 X1000 (1.4-6.5); NEUT% 80.3 % (42.2-75.2); PLT 199 X1000 (130-400); RBC 3.88 XMIL (4.2-5.4); RDW 16.7 % (11.5-14.5); WBC 7.89 X1000 (4.8-10.8)
[2019-03-18 21:13] LABS: ALB/GLOB RATIO 1.3; CALCIUM 8.6 mg/dL (8.8-10.2); CREATININE 1.2 mg/dL (0.5-0.9); POTASSIUM 3.9 mmol/L (3.5-5.1); TOTAL BILIRUBIN 0.47 mg/dL (0.20-1.00); TOTAL PROTEIN 7.1 g/dL (6.3-8.3)
[2019-03-18] MEDS ORDERED: NS 1,000 ML IV ONE (21:43)
[2019-03-18] MEDS ORDERED: ROCEPHIN 1 GM in NS 50 ML IV ONE (21:44)
[2019-03-18 21:47] LABS: URINE SOURCE CLEAN CATCH
[2019-03-18 21:54] LABS: BILIRUBIN URINE NEGATIVE (NEGATIVE); BLOOD URINE TRACE (NEGATIVE); COLOR YELLOW; GLUCOSE URINE NEGATIVE (NEGATIVE); KETONE URINE NEGATIVE (NEGATIVE); LEUKOCYTES URINE LARGE (NEGATIVE); NITRITE URINE NEGATIVE (NEGATIVE); PROTEIN URINE 50 mg/dL (NEGATIVE); SP GRAVITY URINE 1.012; TURBIDITY URINE CLEAR (CLEAR); UROBILINOGEN URINE NORMAL (NORMAL)
[2019-03-18 21:56] LABS: UR EPITHELIAL CELLS <10 /HPF (<10); URINE BACTERIA NEGATIVE /HPF; URINE RBC <10 /HPF (<10); URINE WBC TNTC /HPF (<10)
[2019-03-18] MEDS ORDERED: NITROGLYCERIN SL PRN (22:55)
[2019-03-18] MEDS ORDERED: MELATONIN PO PRN (22:55)
[2019-03-18] MEDS ORDERED: LASIX IV ONE (23:11)
--- NOTE | 2019-03-19 00:21 | HISTORY AND PHYSICAL ---
REASON FOR ADMISSION: One-week history of chest pain and cough, 3 days history of right flank pain. HISTORY OF PRESENT ILLNESS: Ms. uSe Hollis is a 63-year-old woman with past medical history of COPD on 2 L nasal cannula, reflux disease, hypertension, type 2 diabetes, CKD stage 3, atrial fibrillation with history of DVTs and sleep apnea. Last seen here in September of this year and was found to have stable coronary artery disease. Comes in today complaining of 1- week history of retrosternal chest pain, nonradiating, sharp, constant. Worse when she coughs. Reports that the last 3 to 4 days her exercise tolerance has significantly declined, being that she was able 2 weeks ago to at least ambulate 25 to 50 feet before becoming short of breath, now over the last couple of days, she is barely able to go 10 feet before she becomes profoundly short of breath. She also admits to having orthopnea and occasional PND. Admits to having some slight lower extremity swelling. She also complains of 2 to 3 day history of fever and chills. No dysuria, but admits to having increased urinary frequency, but no hematuria. Has right flank pain which is constant, but no factors. She complains of chronic constipation. Otherwise, no other findings. REVIEW OF SYSTEMS: No palpitations lightheadedness. No lightheadedness. Has some nausea. No vomiting. No focal neurological complaints. Denies any contact with anybody with respiratory illness. Otherwise, 12 system review was done, positive findings per HPI. ALLERGIES: Valium, levofloxacin. HOME MEDICATION: Notable for the following things: Neurontin 200 mg t.i.d., melatonin 10 mg at bedtime, Aldactone 25 mg daily, Amitiza 1 b.i.d., aspirin 325 mg daily, Carafate 1 b.i.d., Celexa 40 mg at bedtime, diclofenac topical cream as directed, hydrochlorothiazide 25 mg daily, Lasix 40 mg b.i.d., Mirapex 0.5 mg t.i.d., montelukast 10 mg daily, [place] 7.5 mg q.8 hours p.r.n., potassium chloride 20 mEq b.i.d., Spiriva 1 puff q.a.m., vitamin D 50,000 units weekly, Xarelto 20 mg daily, nitroglycerin 0.4 mg sublingual p.r.n., Isordil 20 mg t.i.d., omeprazole 20 mg daily, levothyroxine 100 mcg daily, and Ventolin inhaler 2 puffs q.6 hours p.r.n. SURGICAL HISTORY: Notable for CABG, tubal ligation and coronary stent. FAMILY HISTORY: Notable for lung cancer in Mother, carotid infraction and diabetes in first- degree relatives. SOCIAL HISTORY: Does not smoke, drink, or use drugs. LABORATORY WORK: Notable for following findings: White count 7000, hemoglobin and hematocrit 10 and 34, platelets 199,000 with a left shift. Sodium 131, BUN 20, creatinine 1.2, calcium 8.6 kg. Urinalysis, ylq-[id number]-[id number]-count WBCs, large leukocytes. Chest film is a poor quality film, poor inspiratory effort, poorly penetrated, but it did show questionable left lower lobe opacity and questionable increased vascular markings with some cardiomegaly. EKG shows normal sinus rhythm with incomplete right bundle, right axis deviation, nonspecific ST wave changes, rate of 86. EXAMINATION: Vital signs: Blood pressure is 142/66, heart rate 79, respirations 18, temperature is 98.1, saturation 98% on room air. General: She is a morbidly obese, middle-aged woman not in acute distress. She is alert and oriented to person, place and time. Normal mood and affect. HEENT: Head is normocephalic, atraumatic. Eyes: LILIAM, EOMI. Anicteric and not pale. ENT: Only notable for mild xerostomia. No central cyanosis. Neck: Supple. No JVD or carotid bruit. No hepatojugular reflux noted. Chest: Decreased entry both lung sinclair with scattered wheezes. Cardiovascular: First and second heart sounds heard. No gallops, murmurs, or rubs. Rhythm is regular. Abdomen: Shows truncal obesity with right CVA tenderness and right upper quadrant tenderness. No rebound or guarding. Bowel sounds are hypoactive. Rectal: Deferred at this time. No bruit heard. Extremities: Patient has trace lower extremity edema with good distal pulse volumes, regular, symmetrical. No clubbing or peripheral cyanosis. Neurological: No gross focal deficits. Skin: Intact. No breakdown, lesion, erythema. Good turgor. Musculoskeletal: Grossly normal. ASSESSMENT: 1. Acute worsening shortness of breath, which could be multifactorial, i.e. chronic obstructive pulmonary disease plus or minus mild congestive heart failure and/or pneumonia. 2. Chronic obstructive pulmonary disease exacerbation. 3. Probable pneumonia. 4. Urinary tract infection. 5. Atrial fibrillation. 6. Diabetes type 2. 7. Reflux disease. 8. Hypertension. 9. Hypothyroidism. PLAN: Due to the fact the patient has overlapping symptoms between a possible pneumonia, COPD, and CHF, it would be prudent to do a noncontrast CT scan to rule out or rule in either of these pathologies. The poor quality of her chest film and the overlapping complaints make it difficult to tease out the primary presentation here. Suffice to say, the patient will be started on a short course of moderate doses of steroids and short and long-acting bronchodilators. We will give patient a trial dose of Lasix intravenously and see how she responds to this. Recommend follow-up PA and lateral chest film in 2 days; also, we will start patient on empiric antibiotics not only for presumed pneumonia, but because of urinary tract infection and follow urine cultures. Continue Xarelto for atrial fibrillation and for DVT prophylaxis. If patient still continues to have right upper quadrant tenderness and still having fever and not getting better despite optimal antibiotics, I recommend the patient have imaging studies to evaluate her gallbladder. cc: MD Lex Moreno MD [facility]
[2019-03-19] MEDS ORDERED: TYLENOL PO PRN (00:48)
[2019-03-19] MEDS ORDERED: ZOFRAN IV PRN (00:48)
[2019-03-19] MEDS: NORCO-10 PO PRN ×2 (01:47→15:25)
[2019-03-19] MEDS: PRILOSEC PO SCH (06:28)
--- NOTE | 2019-03-19 06:34 | Diag Imaging Result Doc PS360 ---
CT THORAX W/O CONTRAST - 03/18/2019 INDICATION: pna VS CHF COMPARISON: 03/18/2019, 09/08/2018 FINDINGS: There are stable sternotomy wires. There is a stent in the left subclavian artery origin. There are CABG changes. Heart size is top normal. Upper abdominal images are unremarkable. There are some stable faint peripheral scarring. No infiltrates. Bones are intact. IMPRESSION: No acute disease. This exam was performed using automated exposure control, adjustment of mA or kV according to patient size, and/or use of iterative reconstruction technique Electronically signed by Brennan Pearson 03/19/2019 6:32 AM
[2019-03-19] MEDS ORDERED: SYNTHROID PO SCH (07:00)
[2019-03-19] MEDS ORDERED: SPIRIVA INH SCH (07:30)
[2019-03-19 07:59] LABS: HEMATOCRIT 33.6 % (37.0-47.0); HEMOGLOBIN 10.3 g/dL (12.0-16.0); IMM GRAN# 0.02 X1000 (0.0-0.04); IMM GRAN% 0.3 % (0.0-0.5); LYMPH# 0.42 X1000 (1.2-3.4); LYMPH% 6.9 % (20.5-51.1); MCH 27.5 PG (27-31); MCHC 30.7 g/dL (33-37); MCV 89.6 FL (81-99); MONO# 0.05 X1000 (0.11-0.59); MONO% 0.8 % (1.7-9.3); MPV 10.1 FL (7.4-10.4); NEUT# 5.61 X1000 (1.4-6.5); PLT 191 X1000 (130-400); RBC 3.75 XMIL (4.2-5.4); RDW 16.9 % (11.5-14.5)
[2019-03-19 08:14] LABS: CALCIUM 8.8 mg/dL (8.8-10.2); CREATININE 1.3 mg/dL (0.5-0.9); POTASSIUM 3.8 mmol/L (3.5-5.1)
[2019-03-19] MEDS ORDERED: XARELTO PO SCH (09:00)
[2019-03-19] MEDS ORDERED: ASPIRIN PO SCH (09:00)
[2019-03-19] MEDS ORDERED: MIRAPEX PO SCH (09:00)
--- NOTE | 2019-03-19 09:29 | EKG Report ---
Test Performed on : 03/19/2019 08:57:43 AM Test Reason : CP Blood Pressure : / mmHG Vent. Rate : 069 BPM Atrial Rate : 069 BPM P-R Int : 164 ms QRS Dur : 096 ms QT Int : 510 ms P-R-T Axes : 074 064 072 degrees QTc Int : 546 ms Sinus rhythm. with marked sinus arrhythmia. Inferior-posterior infarct , age undetermined Prolonged QT Abnormal ECG When compared with ECG of 18-MAR-2019 18:49, (Unconfirmed) T wave inversion more evident in Anterior leads QT has lengthened Unconfirmed Result
[2019-03-19] MEDS: LASIX IV SCH (09:38)
[2019-03-19] MEDS: ALDACTONE PO SCH (09:38)
[2019-03-19] MEDS: NEURONTIN PO SCH ×3 (09:38→17:52)
[2019-03-19] MEDS: PREDNISONE PO SCH (09:38)
[2019-03-19] MEDS: AMITIZA PO SCH ×2 (09:39→22:52)
[2019-03-19] MEDS: ISORDIL PO SCH ×3 (09:39→17:52)
[2019-03-19] MEDS: KLOR-CON PO SCH ×2 (09:39→20:00)
[2019-03-19] MEDS: CELEXA PO SCH (09:39)
[2019-03-19] MEDS: CARAFATE PO SCH ×2 (09:40→20:00)
[2019-03-19] MEDS ORDERED: HEPARIN IV ONE (11:12)
[2019-03-19] MEDS ORDERED: HEPARIN IV PRN (11:12)
[2019-03-19] MEDS ORDERED: HEPARIN 25,000 UNITS/D5W 25,000 UNIT/250 ML IV.SOLN IV SCH (11:15)
[2019-03-19 12:24] LABS: INR 1.06; PROTIME 13.9 Seconds (11.0-16.0); PTT 23.4 Seconds (22.3-41.8)
[2019-03-19] MEDS: LOPRESSOR PO SCH ×2 (15:24→20:06)
--- NOTE | 2019-03-19 15:58 | ECHO REPORT ---
ORDER DATE: 03/19/2019 INDICATION: Chest pain, coronary disease, history of bypass. FINDINGS: 1. Right atrium is mildly enlarged at 4 cm. 2. Mild tricuspid regurgitation. RV systolic pressure 34. 3. Normal RV size and systolic function. 4. Trace pulmonic insufficiency. 5. Moderate left atrial enlargement with a volume index of 35. 6. No mitral valve prolapse. Mild mitral regurgitation. 7. Normal LV size, end-diastolic dimension of 3.7. Normal wall thicknesses with a posterior and interventricular septal wall thickness of 1.0 cm each. Normal LV systolic function. Estimated EF is greater than 55%. Wall motion is difficult to assess due to limited resolution but there do not appear to be any segmental abnormalities. 8. Aortic valve appears to open well. There is no evidence of significant stenosis or insufficiency. 9. Aorta appears normal in visualized segments. 10. No pericardial effusion seen. cc: MD Dottie Maurer PA
--- NOTE | 2019-03-19 17:13 | CARDIOLOGY CONSULTATION ---
DATE: 03/19/2019 CONSULTATION REQUESTED BY: Hospitalist service. REASON FOR CONSULTATION: Chest pain, abnormal EKG. HISTORY: Ms. Hollis is a 63-year-old female who presented to the ER on March 18 with complaints of having difficulty urinating with low back pain and also association with retrosternal chest discomfort, dyspnea. This has been going on more noticeably since last Friday, about a week ago. This really bother her. Upon presentation, she had a chest x-ray that shows pulmonary edema versus pneumonia. Of note her chemistry shows that the proBNP level is 7311 mcg/mL. Her troponin levels have been checked once 0.056. EKG was done initially at 6:49 p.m. yesterday shows sinus rhythm with T-wave abnormality in precordial leads V1 through V 3. However, the subsequent EKG that was done at on 03/19 at 8:57 the morning shows a deep T-wave inversion in precordial leads V1 through V4, which is a dramatic change. Her chest CT shows no acute disease. She has been admitted for management. PAST HISTORY: Positive for coronary heart disease and previous stents. She has had previous coronary surgical revascularization. She had a diagnosis of congestive heart failure. Of note, previous echocardiograms done on her in the past few months showed that her ejection fraction as of December 2017 was normal. In September 2018, she took a stress test that shows ejection fraction of 78% with a low-grade moderate size fixed defect in the inferior and inferior apical wall. No ischemia was noted. She has COPD. She has been diagnosed with cor pulmonale. Her pulmonary pressure on the limited echo from December 2017 was somewhere in the order of 52 mmHg. She has had previous deep venous thrombosis. She has chronic kidney disease, hypothyroidism, and she is obese. Her BMI is 39.3. SURGICAL HISTORY: She had bypass twice x2 in 2006, vein graft to right coronary artery, my mammary graft to LAD CAB surgery, tubal ligation and a left subclavian artery stent in 2009. SOCIAL HISTORY: She is . She is disabled. She lives at home. FAMILY HISTORY: Noncontributory. ALLERGIES TO: Valium and Levaquin. . HOME MEDICATIONS: At the time of this admission included albuterol, citalopram, declot of an act, furosemide, gabapentin, hydrochlorothiazide, isosorbide dinitrate 23 times a day, omeprazole 20 daily, Xarelto 20 mg daily spironolactone 25 daily sucralfate 1 g twice a day. Spiriva inhaler Khadijah is a and [place]. Please refer to the MAR for specific doses. REVIEW OF SYSTEMS: She is limited by dyspnea, somatic pains. She does not do much physically. PHYSICAL EXAMINATION: Vital signs: Blood pressure 127/61, temperature 98.3 degrees, pulse 71, respirations 18. She is awake, alert, oriented, in no distress. HEENT: Unremarkable. Chest: Sounds clear to auscultation and percussion. Heart: Sounds are regular rhythmic. I do not hear a gallop or murmur. Abdomen: Nontender, obese. No masses, no hepatomegaly. Extremities: Show good pulses. No peripheral edema. Neurologic: Nonfocal. Moves 4 extremities. LAB: BUN is 22, creatinine 1.3, sodium 132, potassium 3.8. Hemoglobin 10.3, platelet count 191,000. Her urine analysis is really very abnormal with too numerous to count WBCs and trace blood. IMPRESSION: 1. Patient presented with chest pain in a crescendo pattern with an abnormal ECG suggesting anterior wall ischemia. 2. Previous bypass surgery mammary graft to left anterior descending and vein graft to right coronary artery. 3. Near morbid obesity. 4. History of paroxysmal atrial fibrillation. 5. History of deep venous thrombosis. 6. Chronic obstructive pulmonary disease with cor pulmonale. 7. Congestive heart failure, diastolic dysfunction. 8. Chronic kidney disease. RECOMMENDATION: At this time because of her continuing chest pain, we will put her on heparin and move her to the cardiac unit and we will follow her closely. We are going to trend her enzymes. We are going to do an echocardiogram stat and also a resting nuclear scan to see if there is ischemia of the anterior wall. We do have the report of the stress test that was done in September so we can compare against that and decide if we need to move on and do a heart catheterization on her. In the meantime she has been treated with antibiotics for presumed urosepsis or urinary tract infection. We are going to check inflammatory markers. Further advice will be forthcoming. cc: Dale Zaman MD
[2019-03-19] MEDS: LIDODERM TOP SCH (17:24)
--- NOTE | 2019-03-19 17:31 | PROGRESS NOTE ---
DATE: 03/19/2019 SUBJECTIVE: I evaluated this patient in the morning, around 9-9:30. She was complaining of back pain but also she was complaining of chest pain, pressure like. She described the pain like squeezing, I immediately asked for an EKG and also troponins. Troponins so far are low, negative at 0.05 x 2, but she is having some EKG changes. I consulted Cardiology Department and this patient will be placed on a heparin drip for the possibility of an acute coronary syndrome, and we will transfer this patient to the ICU. OBJECTIVE: Vital Signs: Temperature 97.9 degrees, pulse 93, respiratory rate 16, blood pressure 130/65, oxygen saturation 95% on room air. HEENT: Head normocephalic, no trauma. PERRLA. Neck: Supple. No JVD. No masses. Central trachea. Chest: Clear to auscultation. Some crepitus at the bases. Abdomen: Soft, nontender, nondistended. No hepatosplenomegaly. Cardiovascular: Regular rate and rhythm. Extremities: No edema. No clubbing. No cyanosis. Back: She does have right lower thoracic area pain on her back, that is painful to palpation and with deep inspiration. Neurological: Alert and oriented x3. No focal deficits. LABORATORY: WBC 6.1, hemoglobin 10.3, hematocrit 33.6, platelets 191,000. Sodium 132, potassium 3.8, chloride 94, bicarbonate 23, BUN 22, creatinine 1.3, glucose 233, calcium 8.8. CRP 168. Troponins negative x2 and proBNP 7311. ASSESSMENT AND PLAN: 1. Chest pain, concerning for acute coronary syndrome. She does have some EKG changes, especially T-wave inversion between v1 and v4. Cardiology Department already evaluated this patient. She has been transferred to the ICU and placed on a heparin drip. We will monitor and follow their recommendations and a stress test will be performed tomorrow. 2. Chronic obstructive pulmonary disease with some exacerbation. Continue with same management. 3. Possible pneumonia, we did a CT scan of the chest that did not show any infiltrates, but her CRP is elevated, I will continue with the ceftriaxone for maybe 1 more day and I will re- evaluate this patient tomorrow. Her white blood cell count is negative and the temperature has been normal. 4. Atrial fibrillation continue with same management. 5. Urinary tract infection. Cultures so far negative, but she does have elevated white blood cell count in the urine. It is hard to say if this patient is symptomatic or not at this moment because of her pain, but hopefully tomorrow we will re-evaluate that. 6. Gastroesophageal reflux disease. Continue with the same management. 7. Hypertension. Stable. 8. Hypothyroidism. Continue with same treatment. cc: Humphrey Gooden MD
[2019-03-19] MEDS: ROCEPHIN 1 GM in NS 50 ML IV SCH (17:51)
[2019-03-20] MEDS: LOPRESSOR PO SCH ×4 (01:24→20:47)
[2019-03-20] MEDS: NORCO-10 PO PRN ×2 (01:27→16:50)
--- NOTE | 2019-03-20 03:24 | EKG Report ---
Test Performed on : 03/20/2019 03:16:49 AM Test Reason : EVAL Blood Pressure : / mmHG Vent. Rate : 061 BPM Atrial Rate : 061 BPM P-R Int : 148 ms QRS Dur : 094 ms QT Int : 478 ms P-R-T Axes : 069 059 076 degrees QTc Int : 481 ms Normal sinus rhythm. Low voltage QRS Borderline ECG When compared with ECG of 19-MAR-2019 08:57, QT has shortened Unconfirmed Result
--- NOTE | 2019-03-20 06:00 | EKG Report ---
Test Performed on : 03/20/2019 05:20:29 AM Test Reason : chest pain Blood Pressure : / mmHG Vent. Rate : 053 BPM Atrial Rate : 053 BPM P-R Int : 168 ms QRS Dur : 092 ms QT Int : 506 ms P-R-T Axes : 062 065 070 degrees QTc Int : 474 ms Sinus bradycardia. Low voltage QRS Borderline ECG When compared with ECG of 20-MAR-2019 03:33, (Unconfirmed) No significant change was found Unconfirmed Result
[2019-03-20 06:05] LABS: HEMATOCRIT 30.8 % (37.0-47.0); HEMOGLOBIN 9.5 g/dL (12.0-16.0); LYMPH# 0.72 X1000 (1.2-3.4); LYMPH% 11.2 % (20.5-51.1); MCH 27.7 PG (27-31); MCHC 30.8 g/dL (33-37); MCV 89.8 FL (81-99); MONO# 0.35 X1000 (0.11-0.59); MONO% 5.5 % (1.7-9.3); MPV 10.9 FL (7.4-10.4); NEUT# 5.35 X1000 (1.4-6.5); NEUT% 83.3 % (42.2-75.2); PLT 186 X1000 (130-400); RBC 3.43 XMIL (4.2-5.4); RDW 16.8 % (11.5-14.5); WBC 6.42 X1000 (4.8-10.8)
[2019-03-20] MEDS: PRILOSEC PO SCH (06:26)
[2019-03-20 06:49] LABS: CALCIUM 8.7 mg/dL (8.8-10.2); CREATININE 1.3 mg/dL (0.5-0.9)
[2019-03-20 07:11] LABS: POTASSIUM 4.7 mmol/L (3.5-5.1)
[2019-03-20] MEDS: HEPARIN 25,000 UNITS/D5W 25,000 UNIT/250 ML IV.SOLN IV SCH (07:54)
[2019-03-20] MEDS: SPIRIVA INH SCH (08:30)
[2019-03-20] MEDS: AMITIZA PO SCH ×2 (08:48→20:02)
[2019-03-20] MEDS: CARAFATE PO SCH ×2 (08:48→20:02)
[2019-03-20] MEDS: NEURONTIN PO SCH ×3 (08:48→16:50)
[2019-03-20] MEDS: ISORDIL PO SCH ×3 (08:48→16:51)
[2019-03-20] MEDS: KLOR-CON PO SCH ×2 (08:48→20:02)
[2019-03-20] MEDS: ALDACTONE PO SCH (08:48)
[2019-03-20] MEDS: PREDNISONE PO SCH (08:48)
[2019-03-20] MEDS: ASPIRIN PO SCH (08:48)
[2019-03-20] MEDS: LIDODERM TOP SCH (08:48)
[2019-03-20] MEDS: LASIX IV SCH (09:17)
[2019-03-20] MEDS: CELEXA PO SCH (09:18)
--- NOTE | 2019-03-20 11:52 | PROGRESS NOTE ---
DATE: 03/20/2019 SUBJECTIVE: The patient seems to be doing better. She is still complaining of some chest pain. She describes this pain as a pressure and sharp She did not have any increase on the troponins. Hemoglobin seems to be stable. Pending BMP. OBJECTIVE: Vital Signs: Temperature 97.1 degrees, pulse 59, respiratory rate 14, blood pressure 121/68, oxygen saturation 95% on room air. HEENT: Head normocephalic, no trauma. PERRLA. Neck: Supple. No JVD. No masses. Central trachea. Chest: Clear to auscultation. No wheezing. Decreased breath sounds at the bases. Abdomen: Soft, protuberant, nontender, nondistended. No hepatosplenomegaly. Extremities: Trace lower extremity edema. No clubbing. No cyanosis. Neurological: The patient is alert. She is oriented x3. No focal deficits. LABORATORY: WBC 6.4, hemoglobin 9.5, hematocrit 30.8, platelets 186,000. CK 43, troponin 0.04. ASSESSMENT AND PLAN: 1. Chest pain, concerning for anterior wall ischemia. She does have some changes between B1 and B4 with T wave inversion. Troponin, so far negative. Cardiology on board. She is on heparin drip. We will continue following the recommendations. She will have a stress test done today. 2. Chronic obstructive pulmonary disease with mild exacerbation. Continue with same management. She seems to be better. 3. Possible pneumonia, this has been ruled out by the CT scan. We did not see any infiltrates. CRP is elevated. We will continue with ceftriaxone because of a urinary tract infection. 4. Atrial fibrillation, continue with same management. 5. Urinary tract infection. Cultures are negative so far. We will continue with ceftriaxone. Blood culture has been negative for 48 hours as well. 6. Gastroesophageal reflux disease. Continue with same management. 7. Hypertension, stable. 8. Hypothyroidism. Continue with same treatment. The patient seems to be feeling better, but she is still having chest tightness. We will monitor this patient closely in the ICU. Cardiology Department on board. Continue with heparin drip. cc: Humphrey Gooden MD MTDD
[2019-03-20] MEDS: ROCEPHIN 1 GM in NS 50 ML IV SCH (13:14)
[2019-03-21] MEDS: LOPRESSOR PO SCH ×4 (01:19→21:21)
[2019-03-21] MEDS: HEPARIN 25,000 UNITS/D5W 25,000 UNIT/250 ML IV.SOLN IV SCH ×3 (02:53→17:31)
[2019-03-21] MEDS: PRILOSEC PO SCH (07:10)
[2019-03-21] MEDS ORDERED: BLISTEX MEDICATED BERRY LIP BALM TOP PRN (07:13)
[2019-03-21 07:52] LABS: BASO# 0.01 X1000 (0.0-0.2); BASO% 0.1 % (0.0-0.8); HEMATOCRIT 33.6 % (37.0-47.0); HEMOGLOBIN 10.2 g/dL (12.0-16.0); LYMPH# 1.04 X1000 (1.2-3.4); LYMPH% 15.5 % (20.5-51.1); MCH 27.3 PG (27-31); MCHC 30.4 g/dL (33-37); MCV 90.1 FL (81-99); MONO# 0.42 X1000 (0.11-0.59); MONO% 6.3 % (1.7-9.3); MPV 10.6 FL (7.4-10.4); NEUT# 5.22 X1000 (1.4-6.5); NEUT% 78.1 % (42.2-75.2); PLT 237 X1000 (130-400); RBC 3.73 XMIL (4.2-5.4); WBC 6.69 X1000 (4.8-10.8)
[2019-03-21] MEDS: NEURONTIN PO SCH ×3 (08:04→16:11)
[2019-03-21] MEDS: ASPIRIN PO SCH (08:04)
[2019-03-21] MEDS: ALDACTONE PO SCH (08:04)
[2019-03-21] MEDS: LASIX IV SCH (08:04)
[2019-03-21] MEDS: CARAFATE PO SCH ×2 (08:05→20:04)
[2019-03-21] MEDS: CELEXA PO SCH (08:05)
[2019-03-21] MEDS: ISORDIL PO SCH ×3 (08:05→16:11)
[2019-03-21] MEDS: PREDNISONE PO SCH (08:05)
[2019-03-21] MEDS: KLOR-CON PO SCH ×2 (08:05→20:05)
[2019-03-21] MEDS: AMITIZA PO SCH ×2 (08:05→20:04)
[2019-03-21] MEDS: LIDODERM TOP SCH (08:06)
--- NOTE | 2019-03-21 08:08 | PROGRESS NOTE ---
DATE: 03/21/2019 SUBJECTIVE: The patient is complaining of mild chest heaviness. She has been having bowel movements. She is not having shortness of breath. Her heart rate has been in the high 40s and 50s. Cardiology Department following this patient closely. I have placed this patient NPO after midnight since it looks like she is going to get stress test in the morning. OBJECTIVE: Vital Signs: Temperature 97.1 degrees, pulse 59, respiratory rate 23, blood pressure 149/86, oxygen saturation 98 on 2 L of nasal cannula. HEENT: Head normocephalic, no trauma. PERRLA. Neck: Supple. No JVD. No masses. Central trachea. Chest: Clear to auscultation. No wheezing. No rales. Decreased breath sounds at the bases. Abdomen: Soft, protuberant. Nontender, nondistended. No hepatosplenomegaly. Extremities: No edema, no clubbing, no cyanosis. Neurological: This patient is alert. She is oriented x3. No focal deficits. Cardiovascular: Regular rate and rhythm. Bradycardic. LABORATORY DATA: WBC 6.4, hemoglobin 9.5, hematocrit 30.8, platelets 186,000. Sodium 136, potassium 4.7, chloride 99, bicarbonate 23, BUN 33, creatinine 1.3, glucose 155, calcium 8.7. Negative troponin. ASSESSMENT AND PLAN: 1. Chest pain, concerning for anterior wall ischemia. She does have some EKG changes between V1 and V4 with T-wave inversion. Troponin so far negative. Cardiology on board. She is on heparin drip. Will continue monitoring this patient in the ICU. It has been recommended to do a stress test in the morning. 2. Chronic obstructive pulmonary disease with mild exacerbation. Continue with same management. She seems to be better. No wheezing today. 3. Possible pneumonia. This has been ruled out by the CT scan. We did not see any infiltrates. CRP is elevated though. We will continue with ceftriaxone because she also has a urinary tract infection. 4. Urinary tract infection, as above. 5. Atrial fibrillation. Continue with same management. 6. Gastroesophageal reflux disease. Continue with same treatment. She is on proton pump inhibitor. 7. Hypertension, stable. 8. Hypothyroidism. Continue same management. cc: Humphrey Gooden MD
[2019-03-21 08:13] LABS: CALCIUM 9.1 mg/dL (8.8-10.2); CREATININE 1.3 mg/dL (0.5-0.9); POTASSIUM 4.9 mmol/L (3.5-5.1)
[2019-03-21] MEDS ORDERED: HEPARIN IV PRN (08:24)
[2019-03-21] MEDS ORDERED: HEPARIN IV ONE (08:33)
--- NOTE | 2019-03-21 08:59 | EKG Report ---
Test Performed on : 03/21/2019 06:58:56 AM Test Reason : chest pain Blood Pressure : / mmHG Vent. Rate : 058 BPM Atrial Rate : 058 BPM P-R Int : 128 ms QRS Dur : 094 ms QT Int : 450 ms P-R-T Axes : 080 070 049 degrees QTc Int : 441 ms Sinus bradycardia. Otherwise normal ECG When compared with ECG of 20-MAR-2019 05:20, (Unconfirmed) No significant change was found Unconfirmed Result
[2019-03-21] MEDS: SPIRIVA INH SCH (11:50)
[2019-03-21] MEDS: ROCEPHIN 1 GM in NS 50 ML IV SCH (13:12)
[2019-03-21] MEDS: NORCO-10 PO PRN (16:14)
[2019-03-21] MEDS: IMDUR PO SCH (20:05)
[2019-03-22] MEDS: LOPRESSOR PO SCH ×6 (02:47→21:32)
[2019-03-22] MEDS: PRILOSEC PO SCH (06:03)
[2019-03-22 06:12] LABS: BASO# 0.01 X1000 (0.0-0.2); BASO% 0.1 % (0.0-0.8); EOS# 0.02 X1000 (0.0-0.7); EOS% 0.3 % (0.0-10.0); HEMATOCRIT 35.6 % (37.0-47.0); HEMOGLOBIN 11.1 g/dL (12.0-16.0); IMM GRAN# 0.09 X1000 (0.0-0.04); IMM GRAN% 1.3 % (0.0-0.5); LYMPH# 1.28 X1000 (1.2-3.4); LYMPH% 18.6 % (20.5-51.1); MCH 27.7 PG (27-31); MCHC 31.2 g/dL (33-37); MCV 88.8 FL (81-99); MONO% 8.7 % (1.7-9.3); MPV 10.4 FL (7.4-10.4); NEUT# 4.88 X1000 (1.4-6.5); PLT 263 X1000 (130-400); RBC 4.01 XMIL (4.2-5.4); RDW 16.3 % (11.5-14.5); WBC 6.88 X1000 (4.8-10.8)
[2019-03-22 06:13] LABS: CALCIUM 9.1 mg/dL (8.8-10.2); CREATININE 1.5 mg/dL (0.5-0.9); MAGNESIUM 2.1 mg/dL (1.5-2.7); PHOSPHORUS 3.1 mg/dL (2.7-4.5); POTASSIUM 4.3 mmol/L (3.5-5.1)
--- NOTE | 2019-03-22 07:38 | EKG Report ---
Test Performed on : 03/22/2019 07:01:56 AM Test Reason : chest pain Blood Pressure : / mmHG Vent. Rate : 063 BPM Atrial Rate : 063 BPM P-R Int : 168 ms QRS Dur : 088 ms QT Int : 446 ms P-R-T Axes : 084 066 052 degrees QTc Int : 456 ms Sinus rhythm. with marked sinus arrhythmia. Otherwise normal ECG When compared with ECG of 21-MAR-2019 06:58, (Unconfirmed) No significant change was found Unconfirmed Result
--- NOTE | 2019-03-22 08:22 | CARDIOLOGY PROGRESS NOTE ---
DATE: 03/22/2019 CHIEF COMPLAINT: Chest tightness, shortness of breath, cough productive of thick phlegm. SUBJECTIVE: Ms. Hollis is feeing somewhat better. She has not had any further chest tightness. She is still coughing up some thick phlegm. She has no fever. OBJECTIVE: Blood pressure is 124/68, temperature 98.2, pulse 57, respirations 18. She is awake, alert, no distress. HEENT: Normal. Chest: Symmetrical breath sounds. I do not hear any rales. Heart sounds are regular and rhythmic. I do not hear any convincing gallop or murmur. Abdomen is obese. Extremities showed no edema. Neurologic: Follows commands. Moves all 4 extremities. DIAGNOSTIC DATA: A 12-lead EKG continues to show sinus rhythm with a T wave inversion in the precordial leads V1 through V3. Laboratory shows white cell count is 6888, hemoglobin 11.1, hematocrit 35.6. Sodium 138, potassium 4.3, BUN is 41, creatinine 1.5. IMPRESSION: 1. The patient presented with chest discomfort, somewhat atypical. 2. History of severe coronary heart disease, previous mammary graft to LAD and vein graft to right coronary artery and also previous stent to left subclavian artery following her bypass. 3. History of paroxysmal atrial fibrillation. 4. Obesity. 5. Chronic obstructive pulmonary disease. 6. Congestive heart failure with diastolic dysfunction. 7. Chronic kidney disease. RECOMMENDATIONS: At this time, we will proceed with a Lexiscan stress test. Depending on those results, we will either pursue a followup heart catheterization versus medical therapy. Of note, her C-reactive protein was checked, and it was very elevated at 168.23 mg/dL, suggesting that she has some deep-seated inflammation, either purulent bronchitis or some other sort of inflammation elsewhere. We will continue to follow her. cc: Dale Zaman MD
--- NOTE | 2019-03-22 08:51 | PROGRESS NOTE ---
DATE: 03/22/2019 SUBJECTIVE: The patient seems to be feeling better, but she is still complaining of some mild chest heaviness. No acute events overnight. Today, she will complete the stress test pending results and recommendations. OBJECTIVE: Vital Signs: Temperature 98 degrees, pulse 61, respiratory rate 20, blood pressure 158/63, oxygen saturation 94% on room air. HEENT: Head normocephalic. No trauma. PERRLA. Neck: Supple. No JVD. No masses. Central trachea. Chest: Clear to auscultation. No wheezing. No rales. Decreased breath sounds at the bases. Abdomen: Soft, protuberant, nontender, nondistended. No hepatosplenomegaly. Extremities: No edema, no clubbing, no cyanosis. Neurological: The patient is alert. She is oriented x3. No focal deficits. Cardiovascular: RRR. Slightly bradycardic. LABORATORY DATA: WBC 6.8, hemoglobin 11.1, hematocrit 35.6, platelets 263,000. Sodium 138, potassium 4.3, chloride 98, bicarbonate 27, BUN 41, creatinine 1.5, glucose 86, calcium 9.1. Magnesium 2.1. ASSESSMENT AND PLAN: 1. Chest pain, concerning for anterior wall ischemia. She will have a stress test done today. Cardiology Department on board. She is still complaining of some chest tightness. 2. Chronic obstructive pulmonary disease with mild exacerbation. Continue with the same management. She seems to be feeling better. No wheezing. 3. Possible pneumonia. This has been ruled out by the CT scan. We do not have any infiltrates. CRP is elevated though. Will continue with ceftriaxone because of her urinary tract infection as well. 4. Urinary tract infection. As above. 5. Atrial fibrillation. Continue with the same management. 6. Gastroesophageal reflux disease. Continue with the same treatment. She is on proton pump inhibitors. 7. Hypertension. Stable. 8. Hypothyroidism. Continue with the same management. 9. Chronic kidney disease. This is her baseline. cc: Humphrey Gooden MD
[2019-03-22] MEDS: SPIRIVA INH SCH (08:55)
[2019-03-22] MEDS ORDERED: LEXISCAN ONE (10:02)
[2019-03-22] MEDS ORDERED: AMINOPHYLLINE ONE (10:15)
[2019-03-22] MEDS: HEPARIN 25,000 UNITS/D5W 25,000 UNIT/250 ML IV.SOLN IV SCH (11:53)
[2019-03-22] MEDS: LIDODERM TOP SCH (11:57)
[2019-03-22] MEDS: NEURONTIN PO SCH ×4 (12:00→17:40)
[2019-03-22] MEDS: KLOR-CON PO SCH ×2 (12:00→21:32)
[2019-03-22] MEDS: LASIX IV SCH (12:00)
[2019-03-22] MEDS: CARAFATE PO SCH ×2 (12:00→21:32)
[2019-03-22] MEDS: IMDUR PO SCH ×2 (12:01→21:32)
[2019-03-22] MEDS: PREDNISONE PO SCH (12:01)
[2019-03-22] MEDS: ALDACTONE PO SCH (12:02)
[2019-03-22] MEDS: AMITIZA PO SCH ×2 (12:02→21:32)
[2019-03-22] MEDS: CELEXA PO SCH (12:02)
[2019-03-22] MEDS: ASPIRIN PO SCH (12:02)
[2019-03-22] MEDS: ISORDIL PO SCH ×4 (12:03→17:40)
[2019-03-22] MEDS: ROCEPHIN 1 GM in NS 50 ML IV SCH ×2 (12:20→21:36)
--- NOTE | 2019-03-22 13:15 | Diag Imaging Result Document ---
PROCEDURE NAME: MYOCARDIAL PERF SCAN, STR/REST - 03/19/2019 SUMMARY: The patient was studied using a two-day protocol, and underwent resting sestamibi study on 03/19/2019. The patient was administered 32.4 mCi of technetium 99-m sestamibi, after which resting cardiac images were obtained. The patient returned for Lexiscan sestamibi study on 03/22/2019. The patient was administered Lexiscan 0.4 mg intravenously, after which the heart rate went from 61 beats per minute to 82 beats per minute, and the blood pressure went from 142/69 to 117/65. With Lexiscan, the patient reported transient moderate chest pressure. Following the administration of Lexiscan, the patient was administered 34.1 mCi of technetium-99m sestamibi, after which the patient subsequently received aminophylline 125 mg intravenously, and thereafter had gated cardiac images obtained. Baseline ECG demonstrated normal sinus rhythm. With Lexiscan, there were no diagnostic ST-segment changes. SPECT images were reconstructed in the short, horizontal long, and vertical long axis. Review of these images demonstrated no scintigraphic evidence of inducible myocardial ischemia or prior infarct. Gated images demonstrate a calculated left ventricular ejection fraction of 80% with symmetrical wall motion/thickening. CONCLUSIONS: 1. Adequate response to Lexiscan. 2. Clinically, the patient reported moderate chest pressure with Lexiscan. 3. Electrocardiographically negative for Lexiscan-induced myocardial ischemia. 4. Lexiscan sestamibi images demonstrate no scintigraphic evidence of inducible myocardial ischemia. Normal left ventricular systolic function demonstrated. cc: MD Dale Lazo MD
[2019-03-22] MEDS: MYCOSTATIN SUSP PO SCH (21:36)
[2019-03-22] MEDS: NORCO-10 PO PRN (21:36)
[2019-03-23] MEDS: LOPRESSOR PO SCH ×4 (01:49→23:11)
[2019-03-23] MEDS: HEPARIN 25,000 UNITS/D5W 25,000 UNIT/250 ML IV.SOLN IV SCH (04:23)
[2019-03-23] MEDS: PRILOSEC PO SCH (06:06)
[2019-03-23 06:46] LABS: CALCIUM 9.1 mg/dL (8.8-10.2); CREATININE 1.3 mg/dL (0.5-0.9)
[2019-03-23 07:00] LABS: POTASSIUM 4.9 mmol/L (3.5-5.1)
[2019-03-23] MEDS: SPIRIVA INH SCH (07:51)
[2019-03-23] MEDS: ASPIRIN PO SCH (08:37)
[2019-03-23] MEDS: IMDUR PO SCH ×2 (08:37→23:11)
[2019-03-23] MEDS: CARAFATE PO SCH ×2 (08:37→23:14)
[2019-03-23] MEDS: LASIX IV SCH (08:37)
[2019-03-23] MEDS: ISORDIL PO SCH ×3 (08:37→16:11)
[2019-03-23] MEDS: AMITIZA PO SCH ×2 (08:37→23:43)
[2019-03-23] MEDS: MYCOSTATIN SUSP PO SCH ×4 (08:37→23:14)
[2019-03-23] MEDS: NEURONTIN PO SCH ×3 (08:38→16:10)
[2019-03-23] MEDS: CELEXA PO SCH (08:38)
[2019-03-23] MEDS: ALDACTONE PO SCH (08:38)
[2019-03-23] MEDS: PREDNISONE PO SCH (08:38)
[2019-03-23] MEDS: KLOR-CON PO SCH (08:39)
[2019-03-23] MEDS: LIDODERM TOP SCH (08:39)
[2019-03-23] MEDS ORDERED: ZITHROMAX PO ONE (10:53)
--- NOTE | 2019-03-23 11:20 | CARDIOLOGY PROGRESS NOTE ---
DATE: 03/23/2019 CHIEF COMPLAINT: Chest discomfort, shortness of breath. SUBJECTIVE: The patient says that in general the chest tightness has improved. She is still coughing up some phlegm. She has been up and about. OBJECTIVE: Blood pressure is 121/61, temperature 97.8, pulse 51, respirations 18. She is awake, alert, oriented, no distress. HEENT is unremarkable. Chest: She shows some scattered wheezes with diminished breath sounds. Heart sounds are regular and rhythmic. I do not hear gallop or murmur. Her abdomen is obese, nontender. Extremities showed no obvious edema. Neurologic: Follows commands. Moves all 4 extremities. DIAGNOSTIC DATA: Blood work shows sodium 133, potassium 3.9, BUN is 45, creatinine 1.3. IMPRESSION: 1. The patient presented with chest discomfort, borderline troponin elevation in the [place] zone. 2. History of severe coronary heart disease, previous coronary bypass and coronary intervention to the subclavian artery. 3. Paroxysmal atrial fibrillation. 4. Obese, borderline morbidly obese. 5. Chronic kidney disease. 6. Congestive heart failure with diastolic dysfunction, chronic. RECOMMENDATIONS: The patient completed a nuclear stress test yesterday. There is no evidence of inducible ischemia or scar. Her ejection fraction on nuclear imaging is 80%. At this time, I would suggest to continue medical therapy of what appears to be acute bronchitis. She is on ceftriaxone. She is also on azithromycin. I agree with Xarelto. Heparin will be discontinued. The patient will follow up in the office in about 3 to 4 weeks. We will sign off at this time. cc: Dale Zaman MD
[2019-03-23] MEDS: SOLU-MEDROL IV SCH ×2 (11:36→23:14)
[2019-03-23] MEDS: XARELTO PO SCH (11:37)
--- NOTE | 2019-03-23 14:31 | PROGRESS NOTE ---
DATE: 03/23/2019 SUBJECTIVE: The patient seems to be feeling better. She is still complaining of some mild chest heaviness on and off, but the stress test did not show any acute abnormality, and basically Cardiology Department signed off of this case. It looks like everything is related to her pulmonary problems. I have placed this patient on antibiotics, but I will add today azithromycin. He is wheezing, so I will increase the dose of the steroids to twice a day, and I will give it IV. BUN increased a little bit, but creatinine is normal. Stable urine output. She is having bowel movements. OBJECTIVE: Vital Signs: Temperature 98.2 degrees, pulse 56, respiratory rate 17, blood pressure 125/79, oxygen saturation 98 on room air. HEENT: Head normocephalic. No trauma. PERRLA. Neck: Supple. No JVD. No masses. Central trachea. Chest: Decreased breath sounds globally with prolonged expiratory phase and expiratory wheezing, faint. Abdomen: Soft, protuberant, nontender, nondistended. No hepatosplenomegaly. Extremities: No edema, no clubbing, no cyanosis. Neurological: The patient is alert. She is oriented x3. No focal deficits. LABORATORY DATA: Sodium 133, potassium 4.9, chloride 95, bicarbonate 25, BUN 45, creatinine 1.3, glucose 108, calcium 9.1. ASSESSMENT AND PLAN: 1. Chest pain. We did a stress test that did not show any acute changes. Cardiology Department has been following this patient closely. Likely, the chest pain is related to her current pulmonary condition. She will follow up with Cardiology Department in 3 to 4 weeks. 2. Chronic obstructive pulmonary disease exacerbation. Continue with the same management. She seems to be feeling better. She is wheezing today. I have placed this patient on intravenous steroids instead of oral. Continue with the same management, and oxygen supplementation as needed. 3. Possible pneumonia. This has been ruled out by the CT scan. We do not have infiltrates, but the CRP is elevated though. Will continue with ceftriaxone. I added azithromycin. She does have a urinary tract infection. 4. Urinary tract infection. As above. 5. Atrial fibrillation. Continue with the same management. 6. Gastroesophageal reflux disease. Continue with the same treatment. She is on proton pump inhibitors. 7. Hypertension, stable. 8. Hypothyroidism. Continue with same treatment. 9. Chronic kidney disease. This is her baseline. cc: Humphrey Gooden MD
[2019-03-23] MEDS: ROCEPHIN 1 GM in NS 50 ML IV SCH (23:14)
[2019-03-23] MEDS: NORCO-10 PO PRN (23:43)
[2019-03-24] MEDS: LOPRESSOR PO SCH ×2 (02:23→08:18)
--- NOTE | 2019-03-24 05:38 | Diag Imaging Result Doc PS360 ---
EXAM: CHEST-PORTABLE HISTORY: dyspnea TECHNIQUE: Single view COMPARISON: 03/18/2019 FINDINGS: The lungs are well expanded. The heart is mildly enlarged. There are sternal wires. The vessels are mildly distended. There are no infiltrates. No effusion identified. IMPRESSION: Mildly prominent heart with mild pulmonary edema. Electronically signed by Anup Mayer 03/24/2019 5:36 AM
[2019-03-24] MEDS: PRILOSEC PO SCH (06:14)
[2019-03-24 06:58] LABS: BASO# 0.02 X1000 (0.0-0.2); BASO% 0.2 % (0.0-0.8); HEMOGLOBIN 11.4 g/dL (12.0-16.0); IMM GRAN# 0.46 X1000 (0.0-0.04); IMM GRAN% 4.3 % (0.0-0.5); LYMPH# 0.99 X1000 (1.2-3.4); LYMPH% 9.2 % (20.5-51.1); MCHC 31.7 g/dL (33-37); MCV 88.5 FL (81-99); MONO# 0.33 X1000 (0.11-0.59); MONO% 3.1 % (1.7-9.3); MPV 10.1 FL (7.4-10.4); NEUT# 8.98 X1000 (1.4-6.5); NEUT% 83.2 % (42.2-75.2); PLT 361 X1000 (130-400); RBC 4.07 XMIL (4.2-5.4); RDW 16.1 % (11.5-14.5); WBC 10.78 X1000 (4.8-10.8)
[2019-03-24 07:22] LABS: CALCIUM 9.5 mg/dL (8.8-10.2); CREATININE 1.4 mg/dL (0.5-0.9); POTASSIUM 4.7 mmol/L (3.5-5.1)
[2019-03-24 07:34] LABS: LYMPHS 10 % (21-51); MONO 4 % (1-9); SEGS 86 % (42-75)
[2019-03-24] MEDS: LIDODERM TOP SCH (08:21)
[2019-03-24] MEDS: ISORDIL PO SCH (08:21)
[2019-03-24] MEDS: MYCOSTATIN SUSP PO SCH ×2 (08:21→13:47)
[2019-03-24] MEDS: NEURONTIN PO SCH ×2 (08:21→13:47)
[2019-03-24] MEDS: AMITIZA PO SCH (08:22)
[2019-03-24] MEDS: IMDUR PO SCH (08:22)
[2019-03-24] MEDS: CARAFATE PO SCH (08:22)
[2019-03-24] MEDS: CELEXA PO SCH (08:22)
[2019-03-24] MEDS: ASPIRIN PO SCH (08:22)
[2019-03-24] MEDS: ALDACTONE PO SCH (08:24)
[2019-03-24] MEDS: XARELTO PO SCH (08:25)
[2019-03-24] MEDS: LASIX IV SCH (08:27)
[2019-03-24] MEDS ORDERED: ZITHROMAX PO SCH (09:00)
[2019-03-24] MEDS: SOLU-MEDROL IV SCH (11:04)
[2019-03-24 11:19] VITALS: BP 119/61
[2019-03-24] MEDS: SPIRIVA INH SCH (11:35)
[2019-03-24] MEDS ORDERED: LOPRESSOR PO SCH (20:00)
--- NOTE | 2019-03-26 21:59 | DISCHARGE SUMMARY ---
ADMISSION DATE: 03/19/2019 DISCHARGE DATE: 03/24/2019 DISCHARGE DIAGNOSES: 1. Chest pain. 2. Chronic obstructive pulmonary disease exacerbation. 3. Possible pneumonia, ruled out by a CT scan. 4. Urinary tract infection. 5. Atrial fibrillation. 6. Gastroesophageal reflux disease. 7. Hypertension. 8. Hypothyroidism. 9. Chronic kidney disease. PROCEDURES PERFORMED: 1. Chest x-ray dated 03/18/2019. Impression: Pulmonary edema versus pneumonia, borderline cardiomegaly. 2. Chest CT dated 03/18/2019. Impression: No acute disease. 3. Nuclear stress test dated 03/19/2019. Conclusion: Adequate response to Lexiscan. Clinically the patient reported moderate chest pressure with Lexiscan. Electrocardiographically, negative for Lexiscan-induced myocardial ischemia. Lexiscan sestamibi images demonstrated no scintigraphic evidence of inducible myocardial ischemia. Normal left ventricular systolic function demonstrated. 4. Chest x-ray dated 04/01/2019. Impression: Mildly prominent heart with mild pulmonary edema. HOSPITAL COURSE: This is a 63-year-old female with a past medical history of COPD on home O2, reflux, hypertension, diabetes, CKD stage 3, atrial fibrillation with a history of DVT and sleep apnea, last seen here in September of this year, and was found to have stable coronary disease. Admitted this time on 03/19/2019 due to a 1-week history of retrosternal chest pain. Non radiating, sharp, constant, worse when she coughs. She reported that the last 3 to 4 days her exercise tolerance had significantly declined, being that she was able 2 weeks ago to at least ambulate 20 to 50 feet before becoming short of breath; now over the last couple days prior to admission she is barely able to go 10 feet before she becomes short of breath. She was having some orthopnea and occasional paroxysmal nocturnal dyspnea. Also, lower extremity swelling. She was also complaining of some fever and chills. No dysuria, but admits to be having increased urinary frequency, but no hematuria. She had right flank pain which was constant, but no gastroenterology or urinary factors. She complained of chronic constipation. The next day an echocardiogram was performed again and showed some T-wave inversion between V1 and V4. The Cardiology Department evaluated immediately this patient and transferred this patient to the ICU with a heparin drip. Also, we put this patient on breathing treatments due to her COPD, and antibiotics for possible bronchitis, which I have continued. This patient was feeling better on a daily basis. Her chest pain was kind of stable and decreasing over time. We did a stress test that did not show any abnormality. We will continue treating this patient for her shortness of breath and COPD exacerbation. She is feeling much better, and we do believe she came back to baseline. She was having some decreased heart rate but she was asymptomatic. PHYSICAL EXAMINATION: Vital Signs: Her temperature is 98.1, pulse 51, respiratory rate 17, blood pressure 119/61, oxygen saturation 99% on room air. HEENT: Head normocephalic, no trauma, PERRLA. Neck: Supple. No JVD. No masses. Central trachea. Chest: Clear to auscultation. Prolonged expiratory phase and some crepitus at the bases. No wheezing. Abdomen: Soft, protuberant, nontender, nondistended. No hepatosplenomegaly. Extremities: No edema, no clubbing, no cyanosis. Neurological: The patient was alert. She was oriented x3. Cardiovascular: She was slightly bradycardic. LABORATORY: WBCs 10.7, hemoglobin 11.4, hematocrit 36, platelets 361. Sodium 132, potassium 4.7, chloride 93, bicarbonate 24, BUN 52, creatinine 1.4, glucose 207. DISCHARGE MEDICATIONS: 1. Acetaminophen 650 mg p.o. every 6 hours as needed, Ventolin HFA 2 puff inhaler every 6 hours as needed, aspirin 325 mg p.o. daily, azithromycin 250 mg p.o. daily, Keflex 500 mg p.o. every 12 hours, citalopram 1 tablet p.o. daily, diclofenac cream, Vitamin D 5000 units p.o. as directed, furosemide 20 mg p.o. b.i.d., Gabapentin 300 mg p.o. t.i.d., Mucinex 300 mg p.o. every 12 hours, [place] 10 one tablet p.o. every 8 hours as needed for pain, Imdur 30 mg p.o. b.i.d., Synthroid 100 mcg p.o. daily, Amitiza 1 capsule p.o. b.i.d., melatonin 10 mg p.o. at bedtime, Medrol Dosepak as directed, metoprolol 12.5 mg p.o. every 12 hours, montelukast 1 tablet p.o. daily, omeprazole 20 mg p.o. daily, nitroglycerin 0.4 mg sublingual every 5 minutes p.r.n. chest pain, potassium chloride 20 mg p.o. daily, Mirapex 0.5 mg p.o. t.i.d., Xarelto 20 mg p.o. q.a.m., Aldactone 25 mg p.o. daily, Carafate 1 gram p.o. b.i.d., and Spiriva Respimat 2 puff inhaler every morning. TIME SPENT: Time discharging this patient: 35 minutes. cc: Humphrey Gooden MD
== END 2019-03-24 13:56 | disposition home health service (06) | DRG 191 ==
LOC: ED 18:40 → SUATTDRO 03-19 00:22 → 3N 03-19 00:22 → ICU 03-19 16:27 → 2N 03-21 22:59 → 4N 03-23 17:56
PROVIDERS: ATTEND Internal Medicine